=== PATIENT | male | born 1955 | race Caucasian/White ===

== ENCOUNTER 2017-07-14 16:31 | Inpatient (IN) | payer BC ==
[2017-07-14] MEDS ORDERED: NITROGLYCERIN OINT 1 INCH/GM PACKET TOPICAL STA (16:41)
[2017-07-14] MEDS ORDERED: ASPIRIN 81 MG PO STA (16:41)
[2017-07-14 16:43] LABS: Glucose,Whole Blood 103 mg/dL (75-99)
[2017-07-14 16:50] LABS: Basophils # (A) 0.1 k/uL (0-0.2); Basophils % (A) 1 %; CH 31.1; CHCM 35.9; Eosinophils # (A) 0.2 k/uL (0-0.7); Eosinophils % (A) 2 %; HCT 41.8 % (39.0-53.0); HDW 2.82; HGB 14.5 gm/dL (13.0-17.5); Luc % (Auto) 3; Lymphocytes # (A) 2.9 k/uL (1.0-4.8); Lymphocytes % (A) 38 %; MCH 30.2 pg (25.0-35.0); MCHC 34.6 g/dL (31.0-37.0); MCV 87.2 fL (80.0-100.0); Mean Platelet Volume 7.5; Monocytes # (A) 0.5 k/uL (0-1.0); Monocytes % (A) 7 %; Neutrophils # (A) 3.8 k/uL (1.3-7.7); Neutrophils % (A) 50 %; RDW 15.3 % (11.5-15.5); WBC 7.6 k/uL (3.8-10.6); WBC (Perox) 7.81
[2017-07-14] MEDS ORDERED: METOPROLOL TARTRATE 5 MG/5 ML VIAL IVP STA (16:53)
[2017-07-14 16:58] LABS: Partial Thromboplastin Time 26.2 sec (22.0-30.0); Prothrombin Time 10.2 sec (9.0-12.0)
[2017-07-14 16:59] LABS: ALT 47 U/L (21-72); AST 28 U/L (17-59); Alkaline Phosphatase 74 U/L (38-126); Anion Gap 8 mmol/L; Blood Urea Nitrogen 16 mg/dL (9-20); Calcium 9.3 mg/dL (8.4-10.2); Carbon Dioxide 24 mmol/L (22-30); Chloride 107 mmol/L (98-107); Glucose 96 mg/dL (74-99); Magnesium 1.6 mg/dL (1.6-2.3); Non-African American GFR(MDRD) >60 (>60 ml/min/1.73 sqM); Sodium 139 mmol/L (137-145); Total Bilirubin 0.6 mg/dL (0.2-1.3); Total Protein 6.9 g/dL (6.3-8.2)
[2017-07-14 17:07] LABS: Creatine Kinase 83 U/L (55-170)
--- NOTE | 2017-07-14 17:16 | XR ---
EXAMINATION TYPE: XR chest 2V DATE OF EXAM: 07/14/2017 COMPARISON: 07/05/2012 HISTORY: Shortness of breath TECHNIQUE: Frontal and lateral views of the chest are obtained. FINDINGS: Scattered senescent parenchymal changes noted. Hyperinflation compatible with COPD. No evidence for infiltrate. No evidence for atelectasis. Heart size is stable. Mediastinal structures are stable and grossly unremarkable. No evidence for hilar prominence. Degenerative changes dorsal spine. IMPRESSION: 1. No evidence for acute pulmonary disease.
[2017-07-14 17:21] LABS: Troponin I <0.012 ng/mL (0.000-0.034)
[2017-07-14] MEDS: METOPROLOL TARTRATE 5 MG/5 ML VIAL IVP SCH (17:35)
--- NOTE | 2017-07-14 17:54 | ED ---
Chest Pain HPI - General Chief Complaint: Chest Pain Stated Complaint: chest pain Time Seen by Provider: 07/14/17 16:37 Source: patient Mode of arrival: EMS Limitations: no limitations - History of Present Illness Initial Comments: This 62-year-old white male presents with a complaint of some midsternal and left-sided chest pain is described as a pressure type sensation associated with some shortness of breath without radiation. He states that this occurred while at work this afternoon around 2 PM. He initially tried a sublingual nitroglycerin and this may have helped somewhat but then it reoccurred. He took a second sublingual nitroglycerin prior to ambulance arrival. He apparently did also have some diaphoresis. He does have a significant cardiac history with previous stents. He denies any other complaints or modifying factors. The pain has subsided at this time. - Related Data Home Medications Medication Instructions Recorded Confirmed Albuterol Sulfate [Proair Hfa] 2 puff INHALATION RT-Q6H PRN 07/14/17 07/14/17 Aspirin 325 mg PO DAILY 07/14/17 07/14/17 Atenolol [Tenormin] 50 mg PO BID 07/14/17 07/14/17 Benazepril/Hydrochlorothiazide 2 tab PO DAILY 07/14/17 07/14/17 [Benazepril-Hctz 20-12.5 mg Tab] Mildred 500 mg PO DAILY 07/14/17 07/14/17 Ibuprofen [Motrin] 800 mg PO TID 07/14/17 07/14/17 Multivitamins, Thera [Multivitamin 1 tab PO DAILY 07/14/17 07/14/17 (formulary)] Niacin 500 mg PO HS 07/14/17 07/14/17 [place]-3 Fatty Acids/Fish Oil [Fish 1 cap PO DAILY 07/14/17 07/14/17 Oil 1,000 mg Softgel] Omeprazole 20 mg PO DAILY 07/14/17 07/14/17 Simvastatin [Zocor] 40 mg PO HS 07/14/17 07/14/17 metFORMIN HCL [Glucophage] 500 mg PO BID 07/14/17 07/14/17 Allergies Allergy/AdvReac Type Severity Reaction Status Date / Time No Known Allergies Allergy Verified 07/14/17 17:14 Review of Systems ROS Statement: Those systems with pertinent positive or pertinent negative responses have been documented in the HPI. ROS Other: All systems not noted in ROS Statement are negative. Past Medical History Past Medical History: Coronary Artery Disease (CAD), Diabetes Mellitus, Hyperlipidemia, Hypertension, Myocardial Infarction ([place]) History of Any Multi-Drug Resistant Organisms: None Reported Past Surgical History: Heart Catheterization With Stent Past Psychological History: No Psychological Hx Reported Smoking Status: Former smoker Past Alcohol Use History: Daily Past Drug Use History: None Reported General Exam - General Exam Comments Initial Comments: GENERAL: The patient is well nourished and well hydrated. VITAL SIGNS: Heart rate, blood pressure, respiratory rate reviewed as recorded in nurse's notes. EYES: Pupils are round and reactive. Extraocular movements are intact. No conjunctival / lid redness or swelling. ENT: No external evidence of injury, swelling, or ecchymosis. Airway is patent. Throat is clear. NECK: Nontender. No swelling or evidence of injury. No subcutaneous emphysema. Trachea is midline. No thyroid mass. HEART: Regular rate and rhythm. Good peripheral pulses. LUNGS/CHEST: Breath sounds clear and equal bilaterally. No rales, rhonchi, or wheezes. No ecchymosis, subcutaneous emphysema, or tenderness. ABDOMEN: Abdomen soft without tenderness. No palpable masses or organomegaly. No peritoneal signs. No abdominal wall swelling or ecchymosis. EXTREMITIES: No extremity tenderness. Normal muscle tone and function. No thoracolumbar tenderness. NEUROLOGIC: Sensation is grossly intact. Cranial nerve exam reveals face is symmetrical, tongue is midline, speech is clear. SKIN: No abrasions or ecchymosis is noted. No induration or masses noted. PSYCHIATRIC: Alert and oriented. Appropriate behavior and judgment. Limitations: no limitations Course Vital Signs 07/14/17 16:33 Temperature 97.6 F Pulse Rate 66 Respiratory 20 Rate Blood Pressure 173/80 O2 Sat by Pulse 98 Oximetry Chest Pain MDM - MDM The patient was seen and examined. All diagnostics were reviewed. An IV is established and he is placed on residential monitor. The EKG is done and this does show a normal sinus rhythm. There is some nonspecific ST-T wave changes in the lateral leads. The NC interval is 154, QRS duration is 112, and the QTc interval is 436. Patient received aspirin as well as some Nitropaste. The laboratory Came back unremarkable. The chest x-ray does not show any acute process. The possibility of acute coronary syndrome certainly is possible and it is felt as though patient would require admission to the hospital for further treatment and to rule out the possibility of acute coronary syndrome. The patient is agreeable. 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 Case will be discussed with internal medicine in the near future and he'll be admitted with cardiology to consult. Disposition Clinical Impression: Chest pain, Unstable angina, Hypertension Disposition: ADMITTED IP TO THIS HOSP Condition: Fair Time of Disposition: 17:58 Decision Date: 07/14/17 Decision Time: 17:58
[2017-07-14] MEDS ORDERED: NITROGLYCERIN SL TABS 0.4 MG TAB SUBLINGUAL PRN (17:59)
[2017-07-14] MEDS ORDERED: HEPARIN SODIUM,PORCINE 5,000 UNIT/ML 1 ML VIAL IV PRN (17:59)
[2017-07-14] MEDS ORDERED: HEPARIN SODIUM,PORCINE 5,000 UNIT/ML 1 ML VIAL IV ONE (17:59)
[2017-07-14] MEDS ORDERED: HEPARIN SODIUM,PORCINE/D5W PMX 25,000 UNIT in DEXTROSE/WATER 1 500ML.BAG IV SCH (18:00)
[2017-07-14] MEDS ORDERED: ALBUTEROL NEBULIZED 2.5 MG/3 ML INHALATION PRN (18:02)
[2017-07-14] MEDS ORDERED: ATORVASTATIN 20 MG TAB PO SCH (21:00)
[2017-07-14] MEDS ORDERED: IBUPROFEN 800 MG TAB PO SCH (22:00)
[2017-07-14] MEDS: NIACIN TR 500 MG CAPSULE.ER PO SCH (22:24)
[2017-07-14] MEDS: metFORMIN 500 MG TAB PO SCH (22:24)
[2017-07-14] MEDS: ATENOLOL 50 MG TAB PO SCH (22:24)
[2017-07-14 23:34] LABS: Creatine Kinase 70 U/L (55-170)
[2017-07-14 23:49] LABS: Creatine Kinase MB 0.7 ng/mL (0.0-2.4); Troponin I <0.012 ng/mL (0.000-0.034)
[2017-07-15 04:53] LABS: Mean Platelet Volume 7.2
[2017-07-15 05:08] LABS: Cholesterol 155 mg/dL (<200); HDL Cholesterol 32 mg/dL (40-60)
[2017-07-15 05:11] LABS: Creatine Kinase 57 U/L (55-170)
[2017-07-15 05:24] LABS: Creatine Kinase MB 0.6 ng/mL (0.0-2.4); Troponin I <0.012 ng/mL (0.000-0.034)
--- NOTE | 2017-07-15 05:24 | HP ---
HISTORY AND PHYSICAL DATE OF ADMISSION: 07/14/2017 PRESENTING COMPLAINT: Chest pain. HISTORY OF PRESENTING COMPLAINT: This is a pleasant 62-year-old patient of Dr. Guzmán. Chronic stable medical conditions include diabetes, hyperlipidemia, hypertension. The patient had 2 stents placed one 12 years ago and one 14 years ago. Patient follows with Dr. Ozzy Andersen from cardiology. The patient for a few days has been having chest pain coming on with activity and going away on bed rest. Today at work, the patient had left severe pressure especially in the epigastric area going up to chest. Became short of breath, nausea, started sweating. [place] extremely tired. Admitted for unstable angina. Started on IV heparin. The patient's and daughter at the bedside. REVIEW OF SYSTEMS: CONSTITUTIONAL: Tired. HEENT: None. RESPIRATORY: As above. CARDIOVASCULAR: As above. GASTROINTESTINAL: Heartburn. GENITOURINARY: None. MUSCULOSKELETAL: None. DERMATOLOGICAL: HEMATOLOGIC: None. LYMPHATIC: None. PSYCHIATRY: None. NEUROLOGIC: None. PAST MEDICAL HISTORY: Coronary artery disease with 2 stents 12 and 14 years ago and diabetes mellitus type 2, hyperlipidemia, hypertension. PAST SURGICAL HISTORY: Cardiac cath with stent. SOCIAL HISTORY: The patient stopped smoking in 1993. Works at [employer] . FAMILY HISTORY: Reviewed, noncontributory to presentation. HOME MEDICATIONS: 1. Zocor 40 mg q.h.s. 2. Niacin 500 mg q.h.s. 3. Fish oil 1000 mg p.o. daily. 4. Mildred 500 mg p.o. daily. 5. Multivitamin 1 tablet p.o. daily. 6. Aspirin 325 p.o. daily. 7. ProAir 2 puffs q.6 p.r.n. 8. Glucophage 500 mg p.o. b.i.d. 9. Omeprazole 20 mg p.o. daily. 10.Motrin 800 mg p.o. t.i.d. 11.Benazepril hydrochlorothiazide 20/12.5 two tablets p.o. daily. 12.Tenormin 50 mg p.o. b.i.d. ALLERGIES: None. PHYSICAL EXAMINATION: On examination, vital signs on presentation, temperature 97.6, pulse 66, respirations 20, blood pressure 173/80, pulse ox 98% on 2 L. Repeat blood pressure 132/76. GENERAL APPEARANCE: Well built, BMI 41.5, sitting up, tired appearing. EYES: Pupils equal. Conjunctivae normal. HENT: Oral cavity normal. NECK: JVD not raised. Mass not palpable. RESPIRATORY: Effort normal, slightly distant breath sounds. CARDIOVASCULAR: First and second sounds normal. No edema. ABDOMEN: Soft, nontender. Liver and spleen not palpable. LYMPHATIC: No lymph node palpable in the neck or axillae. PSYCHIATRY: Alert and oriented x3. Mood affect normal. NEUROLOGICAL: Pupils equal. Cranial nerves grossly intact. Power and sensation grossly intact. INVESTIGATIONS: White count 7.6, hemoglobin 14.5. Potassium 4.0. BUN and creatinine normal. Troponin negative. EKG specific T-wave changes in the inferior leads. ASSESSMENT: 1. Unstable angina/acute coronary syndrome with anterior chest wall pain in a patient with known coronary artery disease with stent 12 years ago with symptoms that have been progressive for the last few days, rather cardiac sounding presentation. 2. Diabetes mellitus type 2, on oral hypoglycemic. 3. Hyperlipidemia. 4. Essential hypertension. 5. Morbid obesity, body mass index 41.5. 6. IV heparin monitoring. PLAN: Home medications are resumed. Patient on IV heparin, aspirin. Patient will be made n.p.o. after midnight except for p.o. medications with possibility of cardiac catheterization. Will let Cardiology determined that with the patient. The patient was due to see Dr. Ozzy Andersen in the office today. Care was discussed with the patient and family at bedside. MMODL / IJN: [id number] /
[2017-07-15 07:38] LABS: Glucose,Whole Blood 130 mg/dL (75-99)
[2017-07-15] MEDS ORDERED: ASPIRIN 325 MG TAB PO SCH (09:00)
[2017-07-15] MEDS ORDERED: NON-FORMULARY DRUG (Omega-3 Fatty Acids/Fish Oil [Fish Oil 1,000 Mg Softgel] 1 CAP) PO SCH (09:00)
[2017-07-15] MEDS ORDERED: GINGER 500 MG PO SCH (09:00)
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
[2017-07-15 11:58] LABS: Glucose,Whole Blood 126 mg/dL (75-99)
[2017-07-15] MEDS: LISINOPRIL 20 MG TAB PO SCH (12:23)
[2017-07-15] MEDS: HYDROCHLOROTHIAZIDE 25 MG TAB PO SCH (12:26)
[2017-07-15] MEDS: ATENOLOL 50 MG TAB PO SCH ×2 (12:26→22:50)
[2017-07-15] MEDS: metFORMIN 500 MG TAB PO SCH ×2 (12:26→17:54)
[2017-07-15] MEDS: PANTOPRAZOLE 40 MG TABLET PO SCH (12:26)
[2017-07-15] MEDS: ASPIRIN 81 MG PO SCH (12:26)
[2017-07-15] MEDS: MULTIVITAMINS, THERA 1 EACH TAB PO SCH (12:27)
[2017-07-15] MEDS ORDERED: ASPIRIN 325 MG TAB PO STA (12:49)
[2017-07-15] MEDS ORDERED: ALPRAZolam 0.5 MG TAB PO PRN (12:49)
[2017-07-15] MEDS ORDERED: ALPRAZolam 0.25 MG TAB PO PRN (12:49)
[2017-07-15] MEDS ORDERED: ATORVASTATIN 80 MG TAB PO STA (12:49)
[2017-07-15] MEDS ORDERED: SODIUM CHLORIDE 0.9% 1,000 ML in EMPTY BAG 1 BAG IV ONE (12:49)
--- NOTE | 2017-07-15 12:52 | PN ---
PROGRESS NOTE A 62-year-old gentleman who used to see me in the office and I performed previous percutaneous coronary intervention, but the details are not available. He was scheduled to see me today as an outpatient because of symptoms suggestive of angina with mild activity. However he came to the hospital with symptoms of angina. EKG revealed mild IVCD, poor R-wave progression, and 2 sets of troponins are normal. I am advising coronary angiography. Patient was seen and evaluated by Dr. Mcintyre. I am advising coronary angiography and possible intervention. The rationale for this procedure, risks, benefits, options were explained to the patient and family. They understand all details and wished to proceed with the procedure. Physical exam is unremarkable. Patient appears to be pain free at this time. I will review his old record and perform coronary angiography and PCI if indicated tomorrow morning. The patient and family understand all details and wished to proceed with cath and possible PCI. MMASHOK / IJN: [id number] /
--- NOTE | 2017-07-15 13:04 | ECHOF ---
Referral Reason:cp MEASUREMENTS -------- HEIGHT: 170.2 cm WEIGHT: 120.2 kg BP: 112/53 RVIDd: 3.2 cm (< 3.3) IVSd: 1.1 cm (0.6 - 1.1) LVIDd: 4.9 cm (3.9 - 5.3) LVPWd: 1.2 cm (0.6 - 1.1) IVSs: 1.7 cm LVIDs: 3.7 cm LVPWs: 1.8 cm LA Diam: 3.8 cm (2.7 - 3.8) LAESV Index (A-L): 31.04 ml/m Ao Diam: 3.5 cm (2.0 - 3.7) AV Cusp: 2.3 cm (1.5 - 2.6) MV E Fly: 0.92 m/s MV DecT: 189 ms MV A Fly: 0.74 m/s MV E/A Ratio: 1.24 FINDINGS -------- Sinus rhythm. This was a technically adequate study. The left ventricular size is normal. There is borderline concentric left ventricular hypertrophy. Overall left ventricular systolic function is normal with, an EF between 60 - 65 %. The right ventricle is normal in size. LA is midly dilated 29-33ml/m2. The right atrium is normal in size. Aortic valve is trileaflet and is mildly thickened. The mitral valve is normal. The tricuspid valve appears structurally normal. Pulmonic valve appears structurally normal. The aortic root size is normal. Normal inferior vena cava with normal inspiratory collapse consistent with estimated right atrial pressure of 5 mmHg. There is no pericardial effusion. CONCLUSIONS -------- 1. Sinus rhythm. 2. The mitral valve is normal. 3. The tricuspid valve appears structurally normal. 4. Pulmonic valve appears structurally normal. 5. The aortic root size is normal. 6. Normal inferior vena cava with normal inspiratory collapse consistent with estimated right atrial pressure of 5 mmHg. 7. There is no pericardial effusion. 8. This was a technically adequate study. 9. The left ventricular size is normal. 10. There is borderline concentric left ventricular hypertrophy. 11. Overall left ventricular systolic function is normal with, an EF between 60 - 65 %. 12. The right ventricle is normal in size. 13. LA is midly dilated 29-33ml/m2. 14. The right atrium is normal in size. 15. Aortic valve is trileaflet and is mildly thickened. PUBLIC ADDRESS TECHNICIAN: Karmen Tariq RDCS
--- NOTE | 2017-07-15 14:38 | PN ---
PROGRESS NOTE DATE OF SERVICE: 07/15/2017 PRESENTING COMPLAINT: Chest pain. INTERVAL HISTORY: This patient with known coronary artery disease, presented with other cardiac sorting presentation. Patient has been on IV heparin. No further chest pain. Possibility of cardiac catheterization per Cardiology next. REVIEW OF SYSTEMS: Done for constitutional, cardiovascular, GI, pulmonary, renal findings as above next. CURRENT MEDICATIONS: Reviewed that include IV heparin. EXAMINATION: On examination, temperature 97.9, pulse 62, respiratory 18, blood pressure 130/65, pulse ox 95% room air. GENERAL APPEARANCE: Lying in bed, comfortable. EYES: Pupil equal, conjunctivae normal. NECK: JVD not raised. Mass not palpable. Respiratory effort normal. LUNGS: Slightly decreased breath sounds. CARDIOVASCULAR: First and second sounds, no edema. ABDOMEN: Soft, nontender. Liver and spleen not palpable. PSYCHIATRY: Alert and oriented x3, mood and affect normal. INVESTIGATIONS: Troponin x3 negative. ASSESSMENT: 1. Unstable angina/acute coronary syndrome rather cardiac sounding in a patient with known coronary artery disease, stent 12 years ago with symptoms rather progressive in the last few days. 2. Diabetes mellitus type 2, on oral hypoglycemic. 3. Hyperlipidemia. 4. Essential hypertension. 5. Morbid obesity. Body mass index of 41.5. 6. IV heparin monitoring. PLAN: Care was discussed with the patient. Continue current medication and treatment plan. Patient should be going down for a cardiac cath later today. MMODL / IJN: [id number] /
[2017-07-15 17:15] LABS: Glucose,Whole Blood 120 mg/dL (75-99)
[2017-07-15 20:56] LABS: Glucose,Whole Blood 133 mg/dL (75-99)
[2017-07-15] MEDS: NIACIN TR 500 MG CAPSULE.ER PO SCH (22:48)
[2017-07-16 06:15] LABS: Mean Platelet Volume 7.5
[2017-07-16 06:58] LABS: Glucose,Whole Blood 128 mg/dL (75-99)
[2017-07-16] MEDS: ATENOLOL 50 MG TAB PO SCH (06:59)
[2017-07-16] MEDS: LISINOPRIL 20 MG TAB PO SCH (06:59)
[2017-07-16] MEDS ORDERED: diphenhydrAMINE 50 MG/ML 1 ML VIAL ONE (07:19)
[2017-07-16] MEDS ORDERED: MIDAZOLAM 2 MG/2 ML VIAL ONE (07:20)
[2017-07-16] MEDS ORDERED: IV FLUID CONTINUATION 950 ML IV ONE (07:30)
[2017-07-16] MEDS ORDERED: MIDAZOLAM 2 MG/2 ML VIAL IVP ONE (07:36)
[2017-07-16] MEDS ORDERED: diphenhydrAMINE 50 MG/ML 1 ML VIAL IVP ONE (07:36)
[2017-07-16] MEDS ORDERED: VERAPAMIL 2.5 MG/ML 2 ML AMP ONE (07:37)
[2017-07-16] MEDS ORDERED: LIDOCAINE 2% (PF) 20 MG/ML 2 ML VIAL SQ ONE (07:38)
[2017-07-16] MEDS ORDERED: VERAPAMIL SYRINGE (5 MG/10 ML) INTRAARTER ONE (07:40)
[2017-07-16] MEDS ORDERED: HEPARIN SODIUM 1,000 UN/ML (10ML VL) IV ONE (07:41)
[2017-07-16] MEDS: VERAPAMIL SYRINGE (5 MG/10 ML) INTRAARTER ONE ×2 (07:42→08:18)
[2017-07-16] MEDS ORDERED: NITROGLYCERIN SL TABS 0.4 MG TAB SUBLINGUAL ONE ×2 (07:44→07:45)
[2017-07-16] MEDS ORDERED: IOHEXOL 350 MG/ML 100 ML BOTTLE INJ ONE (08:20)
[2017-07-16 08:25] VITALS: RESP 18
[2017-07-16] MEDS ORDERED: RX INFO: IV CONTRAST WAS GIVEN 1 EACH MISC MISCELLANE PRN (08:35)
[2017-07-16] MEDS ORDERED: SODIUM CHLORIDE 0.9% 1,000 ML IV SCH (08:45)
[2017-07-16] MEDS ORDERED: CLOPIDOGREL 75 MG TAB PO SCH (09:00)
[2017-07-16] MEDS ORDERED: ISOSORBIDE MONONITRATE ER 30 MG TAB.ER.24H PO SCH (09:00)
[2017-07-16] MEDS: metFORMIN 500 MG TAB PO SCH ×2 (09:41→17:19)
[2017-07-16] MEDS: PANTOPRAZOLE 40 MG TABLET PO SCH (09:44)
[2017-07-16] MEDS: MULTIVITAMINS, THERA 1 EACH TAB PO SCH (09:44)
[2017-07-16] MEDS: ASPIRIN 81 MG PO SCH (09:44)
[2017-07-16] MEDS: HYDROCHLOROTHIAZIDE 25 MG TAB PO SCH (10:54)
[2017-07-16 11:56] LABS: Glucose,Whole Blood 117 mg/dL (75-99)
--- NOTE | 2017-07-16 14:24 | CC ---
CARDIAC CATHETERIZATION REPORT DATE OF SERVICE: 07/16/2017 PROCEDURE: Left heart catheterization and coronary angiography. Performed by Dr. Ozzy Andersen. CLINICAL INFORMATION: Mr. Robin Rees is a 62-year-old gentleman with a known history of CAD and previous stenting of proximal LAD performed by me initially in September 2003 and subsequently another lesion proximal to it in November 2005. Since then, he has not followed here consistently, came into the hospital with symptoms strongly suggestive of angina with no elevation of troponin. He was advised cardiac cath and after explanation of risks, benefits, and options. PROCEDURE NOTE: Under local anesthesia and strict aseptic precautions, a 6-Occitan introducer was placed in the right radial artery. I used ultimate 1 catheter for selective coronary angiography of the left coronary artery and after trying a HENRI and a right Jared catheter, eventually with the AR 2 catheter, I had a good seating and selective injection of the RCA. LV pressures were obtained but LV-gram was not performed. Patient tolerated the procedure well. Moderate conscious sedation was provided for a total duration of 45 minutes with a combination of Versed and Benadryl. CARDIAC CATHETERIZATION FINDINGS: The left ventricular end-diastolic pressure was 8 mmHg without gradient across the aortic valve.. CORONARY ANGIOGRAPHY FINDINGS: RIGHT CORONARY ARTERY: This is technically a dominant vessel which gives off a conus branch, very proximally and each time I kept cannulating the conus branch. Right coronary artery is technically dominant, free of significant disease, but in the midportion there is a long area of 35% narrowing with minor irregularity supply a sizable amount of myocardium and bifurcates into PDA and PLV. LEFT MAIN CORONARY ARTERY: This is a short patent disease-free vessel that immediately bifurcates into LAD and circumflex. Left main itself is free of significant disease. LEFT ANTERIOR DESCENDING CORONARY ARTERY: This vessel at the site of previous stenting is widely patent. The proximal stent has about a 40% narrowing with a very good flow. In multiple views, there does not appear to be a significant lesion; however, there is this area of haziness noted in the coronal projection. Beyond the stented segment the LAD is free of significant disease. It runs all the way to the apex, supplying a sizable amount of myocardium. Gives off septal and diagonal branches. There is one good-sized diagonal branch that comes off from the stented segment of LAD. The ostium of the diagonal is free of significant disease, but in the body of the diagonal, there is a new lesion of nearly 70%. It appears to be quite significant. This was not noted on a previous cardiac cath from 2005. The diagonal beyond the 70% stenosis is free of significant disease and supplies a fair amount of myocardium. LEFT POSTERIOR CIRCUMFLEX CORONARY ARTERY: Technically a nondominant vessel, has minor irregularities, gives off a first obtuse marginal and continues as a second obtuse marginal, which is of fair caliber and distribution. No significant disease, only minor irregularities are noted. Left ventriculogram was not performed. FINAL IMPRESSION: This patient has a stenosis involving a major diagonal branch, which seems to be jailed and seems to come off from the jailed segment of the left anterior descending artery. This lesion is significant. Additionally, the proximal LAD also has some haziness and the lesion is no more 45%, but this needs to be further verified. The circumflex is free of significant disease. It is non-dominant. The dominant RCA has 35% long area of disease in the midportion. Left ventricular pressures are normal. RECOMMENDATIONS: I am advising that we will pursue medical therapy with the understanding that I will bring him back next week and from the femoral approach, I will perform an FFR or an IVUS to check the proximal LAD and also consider intervention of the diagonal branch and I will have to go through the stented segment of LAD and this will be a complex procedure. This was explained in detail to the patient and and I will see him again on Thursday and discuss this further. Patient will be placed on Plavix 75 mg daily, Imdur 30 mg daily, and atorvastatin will be increased to 40 mg daily. He will be discharged later on today and will follow up with Dr. Adler, his primary care physician and I will see him on Thursday. MMODL / IJN: [id number] /
--- NOTE | 2017-07-16 14:27 | LTR ---
Date: DATE OF SERVICE: 07/16/2017 RE: Robin Rees Dear Dr. Guzmán; Thank you for the opportunity to participate in the care of Mr. Robin Rees. Please find enclosed my detailed cardiac cath report for your records. I am recommending that we should consider an FFR wire or IVUS of the proximal LAD and then consider intervention of the diagonal. I have given him substantial amount of contrast and he will probably have a better seating of the guide catheter from the femoral approach. I will discharge him later today and re-evaluate him on Thursday and bring him back for the procedure electively. Thank you for your referral and please call for questions. With kindest regards. Sincerely yours, MD MICHAEL Limon / JOEYN: [id number] /
[2017-07-16 15:50] VITALS: BP 131/69; PULSE 63; TEMP 97.6
[2017-07-16 17:02] LABS: Glucose,Whole Blood 118 mg/dL (75-99)
--- NOTE | 2017-07-16 19:45 | DS ---
DISCHARGE SUMMARY DATE OF ADMISSION: 07/14/2017. DATE OF DISCHARGE: 07/16/2017 FINAL DIAGNOSIS: 1. Unstable angina, acute coronary syndrome in a patient with known coronary artery disease. 2. Diabetes mellitus type 2 on oral hypoglycemic. 3. Hyperlipidemia. 4. Essential hypertension. 5. Morbid obesity. Body mass index of 41.5. 6. IV heparin monitoring. 7. CONSULTATION: Dr. Toni Mcintyre from Cardiology and Dr. Ozzy Andersen from interventional cardiology. HOSPITAL COURSE: This patient with known coronary artery disease with stent 12 years ago presents with another cardiac-sounding presentation. Cardiac catheterization was done by Dr. Ozzy Andersen. The patient was found to have disease in the diagonal branch, but he needs to bring the patient back to determine, as this will be more for complex intervention. Imdur is being added. Plavix is being added. Troponins were negative. The patient's triglycerides of 500. EXAMINATION: LUNGS: Clear. CARDIOVASCULAR: 1st and 2nd sounds normal. Care was discussed with the patient. HOME GO MEDICATIONS: 1. ProAir 2 puffs every 6 hours p.r.n. 2. Tenormin 50 mg b.i.d. 3. Benazepril/hydrochlorothiazide 20/12.5, 2 tablets daily. 4. Mildred. 5. Multivitamin 1 tab p.o. daily. 6. Niacin 500 mg p.o. q.h.s. 7. Fish oil 1000 mg p.o. daily. 8. Prilosec 20 mg p.o. daily. 9. Glucophage 500 mg p.o. b.i.d. 10.Aspirin 81 mg p.o. daily. 11.Lipitor 40 mg q.h.s. 12.Plavix 75 mg p.o. daily. 13.Imdur ER 30 mg p.o. daily. 14.Nitrostat 0.4 sublingual q.5 p.r.n. FOLLOWUP: With Dr. Ozzy Andersen on 07/20/2017 at 9:45 a.m., Dr. Guzmán in 2 days. BMP in 3 days. ACTIVITY: Restrictions as per Cardiology. MMODL / IJN: [id number] /
[2017-07-16] MEDS ORDERED: ATORVASTATIN 40 MG TAB PO SCH (21:00)
== END 2017-07-16 18:24 | disposition home or self-care (01) | DRG 287 ==
LOC: EC 16:31 → 3OBS 17:59 → OBSVTOIN 07-15 14:26 → 3OBS 07-15 20:51
PROVIDERS: ADMIT Hospitalist; ATTEND Hospitalist
PROC: B2111ZZ Fluoroscopy of Multiple Coronary Arteries using Low Osmolar Contrast (ICD-10-PCS; 2017-07-16)
PROC: 4A023N7 Measurement of Cardiac Sampling and Pressure, Left Heart, Percutaneous Approach (ICD-10-PCS; principal; 2017-07-16 07:25)
DX: I25.110 Atherosclerotic heart disease of native coronary artery with unstable angina pectoris (principal); Z68.41 Body mass index [BMI] 40.0-44.9, adult; I10 Essential (primary) hypertension; E66.01 Morbid (severe) obesity due to excess calories; K21.9 Gastro-esophageal reflux disease without esophagitis; E78.1 Pure hyperglyceridemia; J44.9 Chronic obstructive pulmonary disease, unspecified; I25.2 Old myocardial infarction; G47.30 Sleep apnea, unspecified; E11.9 Type 2 diabetes mellitus without complications; M19.91 Primary osteoarthritis, unspecified site; E78.5 Hyperlipidemia, unspecified; Z79.84 Long term (current) use of oral hypoglycemic drugs; Z79.1 Long term (current) use of non-steroidal anti-inflammatories (NSAID); Z79.82 Long term (current) use of aspirin; Z79.899 Other long term (current) drug therapy; Z95.5 Presence of coronary angioplasty implant and graft; Z87.891 Personal history of nicotine dependence
CPT/HCPCS: 36415; 71020; 80053; 80061; 82550; 82553; 83735; 84484; 85025; 85049; 85610; 85730; 93005; 93306; 93458; 96365; 96366; 96374; 96375; 96376; 99285

== ENCOUNTER → 2017-07-18 | Outpatient (CLI) | payer BC ==
[2017-07-18 13:15] LABS: Anion Gap 10 mmol/L; Blood Urea Nitrogen 15 mg/dL (9-20); Calcium 9.9 mg/dL (8.4-10.2); Carbon Dioxide 29 mmol/L (22-30); Chloride 101 mmol/L (98-107); Glucose 112 mg/dL (74-99); Non-African American GFR(MDRD) >60 (>60 ml/min/1.73 sqM); Potassium 4.3 mmol/L (3.5-5.1); Sodium 140 mmol/L (137-145)
== END | disposition home or self-care (01) ==
LOC: LABWHC1 12:22
PROVIDERS: ATTEND Hospitalist
DX: I25.10 Atherosclerotic heart disease of native coronary artery without angina pectoris (principal)
CPT/HCPCS: 36415; 80048

== ENCOUNTER 2017-07-22 07:53 | Day surgery (SDC) | payer BC ==
[2017-07-20 15:56] VITALS: BMI 39.6
[~2017-07-22 07:53] MED LIST: ALPRAZolam 0.25 MG TAB PO PRN; ALPRAZolam 0.5 MG TAB PO PRN; ASPIRIN 325 MG TAB PO STA; ATORVASTATIN 80 MG TAB PO STA; NITROGLYCERIN SL TABS 0.4 MG TAB SUBLINGUAL PRN; SODIUM CHLORIDE 0.9% 1,000 ML in EMPTY BAG 1 BAG IV ONE
[2017-07-22 08:50] LABS: Glucose,Whole Blood 134 mg/dL (75-99)
[2017-07-22] MEDS ORDERED: diphenhydrAMINE 50 MG/ML 1 ML VIAL ONE (09:09)
[2017-07-22] MEDS ORDERED: MIDAZOLAM 2 MG/2 ML VIAL ONE (09:09)
[2017-07-22] MEDS ORDERED: LIDOCAINE 2% INJ 20 MG/ML (20 ML MDV) ONE (09:09)
[2017-07-22] MEDS ORDERED: MIDAZOLAM 2 MG/2 ML VIAL IV ONE (09:38)
[2017-07-22] MEDS ORDERED: diphenhydrAMINE 50 MG/ML 1 ML VIAL IVP ONE (09:38)
[2017-07-22] MEDS ORDERED: LIDOCAINE 2% INJ 20 MG/ML SQ ONE (09:45)
[2017-07-22] MEDS: NITROGLYCERIN 1000MCG/10ML SYRINGE INTRAARTER ONE ×5 (09:56→10:23)
[2017-07-22] MEDS ORDERED: NOREPINEPHRIN 4 MG-0.9% NS PMX 4 MG/250 ML ML IV ONE (09:59)
[2017-07-22] MEDS ORDERED: BIVALIRUDIN BOLUS 250 MG/50 ML IV ONE (10:00)
[2017-07-22] MEDS ORDERED: BIVALIRUDIN 250 MG in SODIUM CHLORIDE 0.9% 50 ML IV ONE (10:00)
[2017-07-22] MEDS ORDERED: NITROGLYCERIN SL TABS 0.4 MG TAB SUBLINGUAL ONE ×2 (10:01→10:02)
[2017-07-22] MEDS ORDERED: HYDROmorphone 2 MG/ML 1 ML SYRINGE ONE (10:05)
[2017-07-22] MEDS ORDERED: HYDROmorphone 2 MG/ML 1 ML SYRINGE IV ONE (10:05)
[2017-07-22] MEDS ORDERED: IOHEXOL 350 MG/ML (PER ML) 100ML BTL INJ ONE (10:27)
[2017-07-22] MEDS ORDERED: CLOPIDOGREL 75 MG TAB ONE ×2 (10:30)
[2017-07-22] MEDS ORDERED: CLOPIDOGREL 75 MG TAB PO ONE (10:32)
[2017-07-22] MEDS ORDERED: RX INFO: IV CONTRAST WAS GIVEN 1 EACH MISC MISCELLANE PRN (10:38)
[2017-07-22] MEDS ORDERED: ATROPINE SULFATE 0.1 MG/ML 10ML SYRINGE IV PRN (10:38)
[2017-07-22] MEDS ORDERED: ZOLPIDEM 5 MG TAB PO PRN (10:38)
[2017-07-22] MEDS ORDERED: NITROGLYCERIN SL TABS 0.4 MG TAB SUBLINGUAL PRN ×2 (10:38→10:40)
[2017-07-22] MEDS ORDERED: MAG HYDROX/AL HYDROX/SIMETH 30 ML CUP PO PRN (10:38)
[2017-07-22] MEDS ORDERED: ALBUTEROL NEBULIZED 2.5 MG/3 ML INHALATION PRN (10:40)
--- NOTE | 2017-07-22 11:24 | PTCA ---
PERCUTANEOUSTRANS CORORONARY ANGIOGRAPHY DATE OF SERVICE: 07/22/2017. PROCEDURE: 1. PTCA and stenting of proximal LAD. 2. PTCA and stenting of major diagonal branch of LAD. Performed by Dr. Ozzy Andersen. CLINICAL INFORMATION: Mr. Robin Rees is a 62-year-old gentleman with history of type 2 diabetes, hypertension, hyperlipidemia, underwent stenting of LAD performed in September 2003 and again in 2005. I performed a cardiac cath last week and noted that he had a moderate lesion in the proximal LAD, but he also had a significant lesion in the diagonal branch. The diagonal still seemed to be coming just at or after the stent. I advised that we will perform possibly a FFR of the proximal LAD and then perform intervention of the diagonal and brought in for the procedure. He was placed on Plavix for at least 6 days. PROCEDURE NOTE: Under local anesthesia and strict aseptic precautions, a 6-Andorran introducer was placed in the right femoral artery. I used a left 3.5 curved Jared catheter to cannulate the left coronary artery. After initial injection, patient developed ST elevation. Initial EKG showed mild ST-T abnormality in the precordial leads, but this was a profound ST elevation with chest pain, suggesting that the ostial lesion was significant, very eccentric in location. I quickly advanced a whisper wire and placed it in the distal aspect of the diagonal branch. Without predilatation, I stented the proximal LAD with a 3.5 caliber 8 mm long Xience stent at 13 atmospheres. The patient had chest pain-free cardiac ST elevation. Excellent angiographic result was achieved. I then advanced a 2.5 caliber 12 mm long NC trek balloon and dilated the diagonal lesion from the ostium into the lesion and the lesion was located from the ostium until the proximal portion of the diagonal, but the tightest lesion was in the midportion of this area. The dilatation was performed from the ostium of the diagonal well beyond the lesion. I then used a 2.5 caliber 15 mm long Xience stent and deployed this at the ostium and covered the most tightest part of the lesion in the body of the diagonal branch. Excellent angiographic result was achieved without complication. Patient did not have any significant chest pain with the diagonal dilatation. Excellent angiographic result was achieved. The patient had transient hypotension requiring some IV fluids. The sheath was then taken out an Angio-Seal device used to secure hemostasis. I gave patient Angiomax bolus and infusion as per protocol. He was already on Plavix, but I gave additional 225 mg of Plavix. He was sent to the room in stable condition with excellent angiographic result involving the proximal LAD as well as the major diagonal branch with 2 drug-eluting stents. Moderate conscious sedation was provided for a total duration of 48 minutes with a combination of Versed and Benadryl. MMODL / IJN: [id number] /
--- NOTE | 2017-07-22 11:30 | LTR ---
Date: DATE OF SERVICE: 07/22/2017 RE: Robin Rees Dear Dr. Guzmán; Thank you for the opportunity to participate in the care of Mr. Robin Rees. This gentleman was brought in for possible FFR of LAD and stenting of diagonal, but because of significant EKG changes with injections and noting that the lesion was more significant, I went ahead and stented the proximal LAD and also the diagonal with excellent angiographic result. I expect he will be discharged tomorrow if he remains stable. Thank you for your referral and please call for questions. With kindest regards. Sincerely yours, MD CHEPE NuñezL / JOEYN: [id number] /
[2017-07-22] MEDS: SODIUM CHLORIDE 0.9% 1,000 ML IV SCH (14:00)
[2017-07-22 16:50] LABS: Glucose,Whole Blood 110 mg/dL (75-99)
[2017-07-22 20:57] LABS: Glucose,Whole Blood 111 mg/dL (75-99)
[2017-07-22] MEDS ORDERED: ATORVASTATIN 80 MG TAB PO SCH (21:00)
[2017-07-22] MEDS: ATENOLOL 50 MG TAB PO SCH (21:11)
[2017-07-23] MEDS: SODIUM CHLORIDE 0.9% 1,000 ML IV SCH (01:58)
[2017-07-23 06:06] LABS: Glucose,Whole Blood 114 mg/dL (75-99)
[2017-07-23 06:26] LABS: Basophils % (A) 0 %; CH 29.9; CHCM 33.2; Eosinophils # (A) 0.2 k/uL (0-0.7); Eosinophils % (A) 2 %; HCT 40.8 % (39.0-53.0); HDW 2.87; HGB 13.4 gm/dL (13.0-17.5); Luc # (Auto) 0.22; Luc % (Auto) 3; Lymphocytes # (A) 2.5 k/uL (1.0-4.8); Lymphocytes % (A) 28 %; MCH 29.6 pg (25.0-35.0); MCHC 32.7 g/dL (31.0-37.0); MCV 90.5 fL (80.0-100.0); Mean Platelet Volume 7.3; Monocytes # (A) 0.7 k/uL (0-1.0); Monocytes % (A) 7 %; Neutrophils # (A) 5.4 k/uL (1.3-7.7); Neutrophils % (A) 60 %; RBC 4.51 m/uL (4.30-5.90); RDW 14.2 % (11.5-15.5); WBC (Perox) 9.18
[2017-07-23 06:34] LABS: Anion Gap 9 mmol/L; Blood Urea Nitrogen 15 mg/dL (9-20); Calcium 9.3 mg/dL (8.4-10.2); Carbon Dioxide 26 mmol/L (22-30); Chloride 103 mmol/L (98-107); Glucose 116 mg/dL (74-99); Non-African American GFR(MDRD) >60 (>60 ml/min/1.73 sqM); Potassium 3.8 mmol/L (3.5-5.1); Sodium 138 mmol/L (137-145)
[2017-07-23] MEDS: ATENOLOL 50 MG TAB PO SCH (08:36)
[2017-07-23 08:43] VITALS: BP 140/75; PULSE 71; RESP 18; TEMP 98.6
[2017-07-23] MEDS ORDERED: ASPIRIN 81 MG PO SCH (09:00)
[2017-07-23] MEDS ORDERED: LISINOPRIL 20 MG TAB PO SCH (09:00)
[2017-07-23] MEDS ORDERED: [UNRECOGNIZED DRUG - OTHER] PO SCH (09:00)
[2017-07-23] MEDS ORDERED: NON-FORMULARY DRUG (Omega-3 Fatty Acids/Fish Oil [Fish Oil 1,000 Mg Softgel] 3 CAP) PO SCH (09:00)
[2017-07-23] MEDS ORDERED: ISOSORBIDE MONONITRATE ER 30 MG TAB.ER.24H PO SCH (09:00)
[2017-07-23] MEDS ORDERED: HYDROCHLOROTHIAZIDE 25 MG TAB PO SCH (09:00)
[2017-07-23] MEDS ORDERED: BENAZEPRIL PO SCH (09:00)
[2017-07-23] MEDS ORDERED: HYDROCHLOROTHIAZIDE PO SCH (09:00)
[2017-07-23] MEDS ORDERED: CLOPIDOGREL 75 MG TAB PO SCH (09:00)
--- NOTE | 2017-07-23 10:20 | ECHOF ---
Referral Reason:EKG CHANGES MEASUREMENTS -------- HEIGHT: 170.2 cm WEIGHT: 114.8 kg BP: IVSd: 1.4 cm (0.6 - 1.1) LVIDd: 5.1 cm (3.9 - 5.3) LVPWd: 1.4 cm (0.6 - 1.1) IVSs: 1.7 cm LVIDs: 3.7 cm LVPWs: 1.6 cm LAESV Index (A-L): 22.41 ml/m Ao Diam: 3.6 cm (2.0 - 3.7) AV Cusp: 1.8 cm (1.5 - 2.6) MV E Fly: 0.53 m/s MV DecT: 261 ms MV A Fly: 0.42 m/s MV E/A Ratio: 1.25 FINDINGS -------- Resting bradycardia (HR<60bpm). This was a technically difficult study with suboptimal views. The left ventricular size is normal. There is moderate concentric left ventricular hypertrophy. Overall left ventricular systolic function is mildly impaired with, an EF between 45 - 50 %. ANTERIOR/ANTEROSEPTAL HYPOKINESIS The right ventricle is normal in size and function. Normal LA size by volume 22+/-6 ml/m2. The right atrium is normal in size. 1.5mg of Definity was utilized for enhancement of images The aortic valve is trileaflet, and appears structurally normal. No aortic stenosis or regurgitation. The mitral valve leaflets are mildly thickened. There is trace mitral regurgitation. Trace tricuspid regurgitation present. Right ventricular systolic pressure is normal at < 35 mmHg. There is no evidence of pulmonary hypertension. The pulmonic valve was not well visualized. The aortic root size is normal. Normal inferior vena cava with normal inspiratory collapse consistent with estimated right atrial pressure of 5 mmHg. The pericardium is normal. There is no pericardial effusion. CONCLUSIONS -------- 1. Resting bradycardia (HR<60bpm). 2. The mitral valve leaflets are mildly thickened. 3. There is trace mitral regurgitation. 4. Trace tricuspid regurgitation present. 5. Right ventricular systolic pressure is normal at < 35 mmHg. 6. There is no evidence of pulmonary hypertension. 7. The pulmonic valve was not well visualized. 8. The aortic root size is normal. 9. There is no pericardial effusion. 10. This was a technically difficult study with suboptimal views. 11. The left ventricular size is normal. 12. There is moderate concentric left ventricular hypertrophy. 13. Overall left ventricular systolic function is mildly impaired with, an EF between 45 - 50 %. 14. ANTERIOR/ANTEROSEPTAL HYPOKINESIS 15. Normal LA size by volume 22+/-6 ml/m2. 16. 1.5mg of Definity was utilized for enhancement of images 17. The aortic valve is trileaflet, and appears structurally normal. No aortic stenosis or regurgitation. OSTRICH FARM WORKER: Kendall Vergara RDCS
[2017-07-23 11:45] LABS: Glucose,Whole Blood 96 mg/dL (75-99)
[2017-07-23] MEDS ORDERED: MULTIVITAMINS, THERA 1 EACH TAB PO SCH (12:00)
--- NOTE | 2017-07-23 12:33 | DS ---
DISCHARGE SUMMARY DATE OF ADMISSION: 07/22/2017 DATE OF DISCHARGE: 07/23/2017 PROCEDURES PERFORMED: 1. PTCA and stenting of proximal left anterior descending artery with a drug-eluting stent. 2. PTCA and stenting of the major diagonal branch with a drug-eluting stent. Mr. Rees was brought in for the procedure for elective FFR and intervention of the diagonal branch. However, when I injected the left ventricle I noted that he had significant ST-segment changes suggestive of ischemia and therefore I perform intervention of the proximal LAD with a drug-eluting stent and went on to perform the stenting of the diagonal branch as well. He had precordial ST changes. There is hypokinesia of the septum noted. This may be more of a stunning phenomena since the vessel was widely patent. Patient's postprocedure course was essentially unremarkable. His right groin is clean and dry with a good pulse. I am recommending that we will increase activity and discharge him later on today. Discharge instructions regarding activity, diet, medications were given. He is asymptomatic, ambulating without symptoms. Blood pressure today is 130/70, pulse rate is 64 per minute. No JVD or carotid bruit. S1, S2 heard normally. Lungs are clear. Abdomen and lower extremities exam unchanged. The right groin is clean and dry. There is a short systolic murmur at the base audible. Rest of physical examination is unchanged. He will be discharged today and I will see him in the office on Thursday. Discharge instructions regarding activity, diet, and medications were given. I will perform a follow-up echo in the office. MMODL / IJN: [id number] /
== END 2017-07-23 13:10 | disposition home or self-care (01) ==
LOC: CATHCVL 07:53 → 6SEL 10:30 → CATHCVL 07-23 13:10
PROVIDERS: ATTEND Internal Medicine Interventional Cardiology
DX: I25.10 Atherosclerotic heart disease of native coronary artery without angina pectoris (principal); Z95.5 Presence of coronary angioplasty implant and graft; R00.1 Bradycardia, unspecified; I10 Essential (primary) hypertension; E11.9 Type 2 diabetes mellitus without complications; E78.5 Hyperlipidemia, unspecified; E78.00 Pure hypercholesterolemia, unspecified; Z79.84 Long term (current) use of oral hypoglycemic drugs; Z79.82 Long term (current) use of aspirin; Z79.899 Other long term (current) drug therapy; Z82.49 Family history of ischemic heart disease and other diseases of the circulatory system; Z87.891 Personal history of nicotine dependence
CPT/HCPCS: 93306; 80048; 85025; C9600; C9601; C1760; C1769 ×4; C1887; C1725; C1894; C1874; J2001; J2250; J1170; J1200; Q9967; Q9957; J0583

== ENCOUNTER → 2017-10-15 | Outpatient (CLI) | payer BC ==
[2017-10-15 11:40] LABS: Anisocytosis Slight; Basophils # (A) 0.1 k/uL (0-0.2); Basophils % (A) 1 %; Eosinophils # (A) 0.2 k/uL (0-0.7); Eosinophils % (A) 2 %; HCT 32.4 % (39.0-53.0); HDW 3.84; Hypochromasia Moderate; Luc # (Auto) 0.14; Luc % (Auto) 2; Lymphocytes # (A) 2.2 k/uL (1.0-4.8); Lymphocytes % (A) 34 %; MCH 28.2 pg (25.0-35.0); MCHC 30.9 g/dL (31.0-37.0); MCV 91.1 fL (80.0-100.0); Mean Platelet Volume 8.3; Monocytes # (A) 0.4 k/uL (0-1.0); Monocytes % (A) 6 %; Neutrophils # (A) 3.5 k/uL (1.3-7.7); Neutrophils % (A) 55 %; Poikilocytosis Slight; RBC 3.55 m/uL (4.30-5.90); RDW 16.2 % (11.5-15.5); WBC 6.4 k/uL (3.8-10.6); WBC (Perox) 6.69
[2017-10-15 11:57] LABS: ALT 41 U/L (21-72); AST 22 U/L (17-59); Alkaline Phosphatase 70 U/L (38-126); Anion Gap 9 mmol/L; Blood Urea Nitrogen 16 mg/dL (9-20); Calcium 9.4 mg/dL (8.4-10.2); Carbon Dioxide 30 mmol/L (22-30); Chloride 104 mmol/L (98-107); Glucose 125 mg/dL (74-99); Non-African American GFR(MDRD) >60 (>60 ml/min/1.73 sqM); Potassium 4.5 mmol/L (3.5-5.1); Sodium 143 mmol/L (137-145); Total Bilirubin 0.5 mg/dL (0.2-1.3); Total Protein 6.5 g/dL (6.3-8.2)
== END | disposition home or self-care (01) ==
LOC: LABWHC1 11:14
PROVIDERS: ATTEND Hospitalist
DX: K29.70 Gastritis, unspecified, without bleeding (principal); Z11.59 Encounter for screening for other viral diseases
CPT/HCPCS: 36415; 80053; 80074; 85025

== ENCOUNTER → 2017-10-29 | Outpatient (CLI) | payer BC ==
[2017-10-29 10:47] LABS: Basophils % (A) 1 %; Eosinophils # (A) 0.2 k/uL (0-0.7); Eosinophils % (A) 2 %; HCT 35.1 % (39.0-53.0); HGB 10.7 gm/dL (13.0-17.5); Hypochromasia Marked; Lymphocytes # (A) 2.4 k/uL (1.0-4.8); Lymphocytes % (A) 34 %; MCH 26.6 pg (25.0-35.0); MCHC 30.6 g/dL (31.0-37.0); Mean Platelet Volume 8.3; Monocytes # (A) 0.5 k/uL (0-1.0); Monocytes % (A) 7 %; Neutrophils # (A) 3.9 k/uL (1.3-7.7); Neutrophils % (A) 54 %; Platelet Count 210 k/uL (150-450); Poikilocytosis Marked; RBC 4.04 m/uL (4.30-5.90); WBC 7.3 k/uL (3.8-10.6)
== END ==
LOC: LABWHC1 10:29
PROVIDERS: ATTEND Family Medicine
DX: K92.2 Gastrointestinal hemorrhage, unspecified (principal)
CPT/HCPCS: 36415; 85025

== ENCOUNTER → 2018-08-23 | Outpatient (CLI) | payer BC ==
[2018-08-23 16:26] LABS: HCT 45.2 % (39.0-53.0); HGB 15.2 gm/dL (13.0-17.5); MCH 29.6 pg (25.0-35.0); MCHC 33.6 g/dL (31.0-37.0); Platelet Count 181 k/uL (150-450); RBC 5.14 m/uL (4.30-5.90); WBC 9.1 k/uL (3.8-10.6)
[2018-08-23 16:37] LABS: ALT 44 U/L (21-72); AST 27 U/L (17-59); Albumin 4.4 g/dL (3.5-5.0); Albumin/Globulin Ratio 1.5; Alkaline Phosphatase 83 U/L (38-126); Anion Gap 8 mmol/L; Blood Urea Nitrogen 16 mg/dL (9-20); Calcium 10.4 mg/dL (8.4-10.2); Carbon Dioxide 29 mmol/L (22-30); Chloride 103 mmol/L (98-107); Glucose 102 mg/dL (74-99); Potassium 4.2 mmol/L (3.5-5.1); Sodium 140 mmol/L (137-145); Total Bilirubin 0.9 mg/dL (0.2-1.3); Total Protein 7.4 g/dL (6.3-8.2)
[2018-08-23 16:57] LABS: Creatine Kinase MB 0.6 ng/mL (0.0-2.4); Troponin I <0.012 ng/mL (0.000-0.034)
== END | disposition home or self-care (01) ==
LOC: LABWHC1 15:31
PROVIDERS: ATTEND Nurse Practitioner Adult Health
DX: R07.9 Chest pain, unspecified (principal)
CPT/HCPCS: 36415; 80053; 82553; 83880; 84484; 85027

== ENCOUNTER → 2018-11-02 | Outpatient (CLI) | payer BC ==
--- NOTE | 2018-11-02 13:02 | CONS ---
CONSULTATION Consultation note for sleep apnea. A 63-year-old male patient established having a diagnosis of obstructive sleep apnea many years back. His original diagnosis was confirmed here at the sleep center and following that, approximately 2 years ago the patient had re-evaluation at the [facility]. Currently, he using a Respironics CPAP unit which is set at a pressure of 17 cm of water and he using a Mirage Quattro full face mask. The polysomnogram report is not available to me. Yet I suspect that the patient has at least some degree of severe obstructive sleep apnea. The patient for now is doing well. No major fatigue or sleepiness during the day. No snoring while on CPAP treatment. Denies having stop breathing during sleep while on the CPAP. No issues with insomnia. No issues which choking or gasping for air. No nocturia. No grinding of the teeth. Waking up alert and refreshed without any dry mouth. At times he has some problems with concentration and memory. He is not falling asleep at times that are not undesired. He is feeling more fatigued and tired and he wanted his ERIC to be re-evaluated. His current Hinsdale Score is at 19. I do not have a CPAP unit with him today to check his compliancy data to make further recommendations. Yet for the most part, the patient seems to be compliant. He has been utilizing his CPAP every night and apparently is going to bed around 12:30 a.m., waking up 10 a.m. in the morning, averaging around 9 hours of sleep. No recent changes in medication. No history of CVA. No history of head trauma. No history of anxiety. No history of depression. PAST MEDICAL HISTORY: 1. Obesity. 2. Obstructive sleep apnea, maintained on CPAP at pressure of 17. 3. Coronary artery disease with previous coronary intervention and stenting. 4. Diabetes. 5. Hyperlipidemia. 6. Hypertension. PAST SURGICAL HISTORY: Past surgical history includes cardiac catheterization and insertion of coronary stents. DRUG ALLERGIES: Not known. MEDICATION: Outpatient medication list includes: 1. Lipitor 80 q. day. 2. Metformin 500 mg p.o. q. day. 3. Albuterol ProAir rescue inhaler p.r.n. 4. Aspirin 81 mg p.o. q. day. 5. Atenolol 50 mg p.o. q. day. 6. Benazepril hydrochlorothiazide 20/12.5 two tablets a day. 7. Plavix 75 q. day. 8. Imdur 30 mg p.o. daily. 9. Multivitamin 1 tablet a day. 10.Niacin 1000 mg at bedtime. 11.King[place]-3 fatty oil. 12.Omeprazole 20 mg p.o. q. day. SOCIAL HISTORY: Ex-smoker. No history of alcoholism. No history of IV drugs. FAMILY HISTORY: Negative for sleep apnea. REVIEW OF SYSTEMS: Twelve-point review of system was done. He has been having more fatigue and tiredness recently with some degree of sleepiness and he wanted to be evaluated further. No depression. No anxiety. No claustrophobia. No sexual dysfunction. No restlessness in lower extremities. No palpitation. No anxiety. No panic. No active symptoms of angina. His weight is up and the patient has been gradually gaining weight over the years. The exact amount of weight gain since diagnosis unknown although this is suspected to be more than 10 to 15 pounds. No naps during the day. PHYSICAL EXAMINATION: BP 144/70, pulse 64, respirations 16, temperature 97.9 saturation 96% on room air. Weight is 269. Height is 5 feet 7 inches. Neck size is 19-1/2 inches. BMI 41.3. GENERAL APPEARANCE: Calm, comfortable. Head is atraumatic, normocephalic. Neck is supple. There is no JVD. No goiter or neck masses. Mallampati class IV. LUNGS: Clear to auscultation. HEART: Sounds regular rate and rhythm. Normal S1, S2. No S3. No murmurs. ABDOMEN: Soft, nontender. No organomegaly. EXTREMITIES: No edema. No cyanosis or clubbing. NEUROLOGIC: The patient is alert and oriented x3. No focal neurological deficits. PSYCHIATRIC: Negative for anxiety or depression. SKIN: Negative for any wounds or ulceration. IMPRESSION: 1. Obstructive sleep apnea currently on CPAP with a pressure of 17 cm of water utilizing a full face mask, a Mirage Quattro full face mask. 2. Hypersomnia needs to be re-evaluated as far as the efficiency of his CPAP unit and his compliancy data. 3. Obesity with a body mass index of 41.3. 4. Coronary artery disease with recent coronary intervention and stenting. 5. Hypertension. 6. Hyperlipidemia. 7. Diabetes mellitus. PLAN: I am asking this patient to bring his CPAP unit with him. I would like to make sure that the machine is functioning. At the same time, would like to check his compliance data and make sure the patient is demonstrating enough number of hours of use and that the treatment is affective where he is able to achieve an AHI of less than 5 while on treatment. If not, we will make appropriate adjustments. He also requests a pulmonary evaluation. For all these reasons, I referred this patient to the pulmonary clinic to have both a pulmonary evaluation and follow-up check on his CPAP unit. MICHAEL / JOEYN: [id number] /
== END | disposition home or self-care (01) ==
LOC: SLEEP 10:36
PROVIDERS: ATTEND Internal Medicine Critical Care Medicine
DX: G47.33 Obstructive sleep apnea (adult) (pediatric) (principal); E66.9 Obesity, unspecified; I25.10 Atherosclerotic heart disease of native coronary artery without angina pectoris; I10 Essential (primary) hypertension; E78.5 Hyperlipidemia, unspecified; E11.9 Type 2 diabetes mellitus without complications; Z68.41 Body mass index [BMI] 40.0-44.9, adult; Z87.891 Personal history of nicotine dependence; Z99.89 Dependence on other enabling machines and devices; Z95.5 Presence of coronary angioplasty implant and graft; Z79.84 Long term (current) use of oral hypoglycemic drugs; Z79.82 Long term (current) use of aspirin; Z79.02 Long term (current) use of antithrombotics/antiplatelets; Z79.899 Other long term (current) drug therapy
CPT/HCPCS: 99211

== ENCOUNTER → 2018-11-24 | Outpatient (CLI) | payer BC ==
[2018-11-24 12:02] LABS: HCT 45.5 % (39.0-53.0); HGB 14.7 gm/dL (13.0-17.5); MCHC 32.4 g/dL (31.0-37.0); MCV 89.6 fL (80.0-100.0); Mean Platelet Volume 6.4; Platelet Count 193 k/uL (150-450); RBC 5.08 m/uL (4.30-5.90); WBC 8.5 k/uL (3.8-10.6)
[2018-11-24 12:07] LABS: Anion Gap 9 mmol/L; Blood Urea Nitrogen 17 mg/dL (9-20); Calcium 9.9 mg/dL (8.4-10.2); Carbon Dioxide 30 mmol/L (22-30); Chloride 103 mmol/L (98-107); Glucose 136 mg/dL (74-99); Potassium 4.3 mmol/L (3.5-5.1); Sodium 142 mmol/L (137-145)
== END | disposition home or self-care (01) ==
LOC: LABPAT 10:56
PROVIDERS: ATTEND Internal Medicine Interventional Cardiology
DX: Z01.812 Encounter for preprocedural laboratory examination (principal); I25.10 Atherosclerotic heart disease of native coronary artery without angina pectoris
CPT/HCPCS: 36415; 80048; 85027

== ENCOUNTER 2018-11-30 06:08 | Day surgery (SDC) | payer BC ==
[2018-11-26 12:32] VITALS: BMI 40.7
[~2018-11-30 06:08] MED LIST changes: -ATORVASTATIN 80 MG TAB PO STA
[2018-11-30 06:53] LABS: Glucose,Whole Blood 140 mg/dL (75-99)
[2018-11-30] MEDS ORDERED: ATORVASTATIN 80 MG TAB PO ONE (07:00)
[2018-11-30] MEDS ORDERED: LIDOCAINE 1% INJ 10MG/ML (20 ML MDV) ONE (07:16)
[2018-11-30] MEDS ORDERED: MIDAZOLAM 2 MG/2 ML VIAL IV ONE (07:55)
[2018-11-30] MEDS ORDERED: LIDOCAINE 1% INJ 10MG/ML (20 ML MDV) SQ ONE (08:01)
[2018-11-30] MEDS ORDERED: BIVALIRUDIN BOLUS 250 MG/50 ML IV ONE (08:17)
[2018-11-30] MEDS ORDERED: BIVALIRUDIN 250 MG in SODIUM CHLORIDE 0.9% 40 ML IV ONE ×2 (08:18→08:49)
[2018-11-30] MEDS ORDERED: IOPAMIDOL-250 100ML BTL INTRAARTER ONE ×2 (08:30→09:16)
[2018-11-30] MEDS ORDERED: IOPAMIDOL-300 100ML BTL INJ ONE (08:30)
[2018-11-30] MEDS: NITROGLYCERIN 1000MCG/10ML SYRINGE INTRACORON ONE ×2 (08:35→09:11)
[2018-11-30] MEDS ORDERED: ADENOSINE 3 MG/ML 4 ML VIAL IVP ONE (08:54)
[2018-11-30] MEDS ORDERED: SODIUM CHLORIDE 0.9% 100 ML BAG ONE (08:54)
[2018-11-30] MEDS ORDERED: NITROGLYCERIN SL TABS 0.4 MG TAB SUBLINGUAL ONE ×2 (08:55→08:57)
[2018-11-30] MEDS ORDERED: CLOPIDOGREL 75 MG TAB ONE (09:14)
[2018-11-30] MEDS ORDERED: CLOPIDOGREL 75 MG TAB PO ONE (09:16)
[2018-11-30] MEDS ORDERED: PSYLLIUM HUSK 100% 6 GM PACKET PO PRN (09:26)
[2018-11-30] MEDS ORDERED: HYDROmorphone 2 MG/ML 1 ML SYRINGE IV ONE (09:26)
[2018-11-30] MEDS ORDERED: ATROPINE SULFATE 0.1 MG/ML 10ML SYRINGE IV PRN (09:29)
[2018-11-30] MEDS ORDERED: MAG HYDROX/AL HYDROX/SIMETH 30 ML CUP PO PRN (09:29)
[2018-11-30] MEDS ORDERED: RX INFO: IV CONTRAST WAS GIVEN 1 EACH MISC MISCELLANE PRN (09:29)
[2018-11-30 11:55] LABS: Glucose,Whole Blood 155 mg/dL (75-99)
[2018-11-30] MEDS: SODIUM CHLORIDE 0.9% 1,000 ML IV SCH ×2 (12:40→19:46)
[2018-11-30 16:46] LABS: Glucose,Whole Blood 116 mg/dL (75-99)
[2018-11-30] MEDS: INSULIN ASPART 100 UNIT/ML 1 ML 10 ML VIAL SQ SCH ×2 (16:51→20:40)
[2018-11-30] MEDS: ATENOLOL 50 MG TAB PO SCH (19:46)
[2018-11-30 20:38] LABS: Glucose,Whole Blood 110 mg/dL (75-99)
[2018-11-30] MEDS ORDERED: NIACIN TR 500 MG CAPSULE.ER PO SCH (21:00)
[2018-11-30] MEDS ORDERED: ATORVASTATIN 80 MG TAB PO SCH (23:00)
[2018-12-01 06:19] LABS: Glucose,Whole Blood 124 mg/dL (75-99)
[2018-12-01] MEDS: INSULIN ASPART 100 UNIT/ML 1 ML 10 ML VIAL SQ SCH ×2 (06:24→12:10)
[2018-12-01 06:32] LABS: Basophils % (A) 0 %; Eosinophils # (A) 0.2 k/uL (0-0.7); Eosinophils % (A) 2 %; HCT 41.8 % (39.0-53.0); HGB 13.6 gm/dL (13.0-17.5); Lymphocytes # (A) 3.3 k/uL (1.0-4.8); Lymphocytes % (A) 35 %; MCH 28.9 pg (25.0-35.0); MCHC 32.6 g/dL (31.0-37.0); MCV 88.4 fL (80.0-100.0); Mean Platelet Volume 6.6; Monocytes # (A) 0.6 k/uL (0-1.0); Monocytes % (A) 6 %; Neutrophils # (A) 5.2 k/uL (1.3-7.7); Neutrophils % (A) 54 %; Platelet Count 155 k/uL (150-450); RBC 4.72 m/uL (4.30-5.90); WBC 9.5 k/uL (3.8-10.6)
[2018-12-01 06:42] LABS: Anion Gap 5 mmol/L; Blood Urea Nitrogen 15 mg/dL (9-20); Calcium 9.1 mg/dL (8.4-10.2); Carbon Dioxide 31 mmol/L (22-30); Chloride 104 mmol/L (98-107); Glucose 119 mg/dL (74-99); Sodium 140 mmol/L (137-145)
[2018-12-01] MEDS ORDERED: ISOSORBIDE MONONITRATE ER 30 MG TAB.ER.24H PO SCH (09:00)
[2018-12-01] MEDS ORDERED: CLOPIDOGREL 75 MG TAB PO SCH (09:00)
[2018-12-01] MEDS ORDERED: NON-FORMULARY DRUG (Omega-3 Fatty Acids/Fish Oil [Fish Oil 1,000 Mg Softgel] 3 CAP) PO SCH (09:00)
[2018-12-01] MEDS ORDERED: ASPIRIN 81 MG PO SCH (09:00)
[2018-12-01] MEDS ORDERED: HYDROCHLOROTHIAZIDE 25 MG TAB PO SCH (09:00)
[2018-12-01] MEDS ORDERED: LISINOPRIL 20 MG TAB PO SCH (09:00)
[2018-12-01] MEDS ORDERED: GINGER 500 MG PO SCH (09:00)
[2018-12-01] MEDS: ATENOLOL 50 MG TAB PO SCH (10:12)
[2018-12-01 10:45] VITALS: RESP 18; TEMP 97.2
[2018-12-01] MEDS ORDERED: MULTIVITAMINS, THERA 1 EACH TAB PO SCH (12:00)
[2018-12-01 12:04] LABS: Glucose,Whole Blood 128 mg/dL (75-99)
[2018-12-01 12:14] VITALS: BP 145/84; PULSE 63
--- NOTE | 2018-12-01 13:22 | P.PN ---
Subjective Progress Note Date: 12/01/18 Discharge note Is is a 63-year-old gentleman admitted to the hospital by Dr. MATTHEW Andersen yesterday, underwent angioplasty and stenting of the LAD, he was seen and examined this morning, denies any chest pain or difficulty in breathing. He's been up ambulating without any difficulty. EKG from this morning shows a sinus bradycardia with a left bundle-branch block pattern. Blood pressure 144/84, heart rate in the 60s, 96% on room air. CBC is normal, sodium 140, potassium 4.0, BUN 15, creatinine 0.8. Objective - Vital Signs Vital signs: Vital Signs Temp 97.2 F L 12/01/18 12:12 Pulse 63 12/01/18 12:12 Resp 18 12/01/18 12:12 BP 145/84 12/01/18 12:12 Pulse Ox 96 12/01/18 12:12 Intake & Output 11/30/18 12/01/18 12/01/18 18:59 06:59 18:59 Intake Total 1150.7 1200 240 Balance 1150.7 1200 240 Weight 117.934 kg 121 kg Intake: IV 470.7 Sodium Chloride 0.9% 1, 75 000 ml @ 75 mls/hr IV . [id number] KOLE Rx#:[id number] Intake, IV Titration 1200 Amount Sodium Chloride 0.9% 1, 1200 000 ml @ 75 mls/hr IV . [id number] KOLE Rx#:[id number] Oral 680 240 Other: Voiding Method Toilet - Exam PHYSICAL EXAMINATION: GENERAL: 63-year-old gentleman in no acute distress at the time of my examination HEENT: Head is atraumatic, normocephalic. Pupils equal, round. Sclera anicteric. Conjunctiva are clear. Mucous membranes of the mouth are moist. Neck is supple. There is no elevated jugular venous pressure. No carotid bruit is heard. HEART EXAMINATION: Heart S1, S2 normal. No murmur or gallop heard. CHEST EXAMINATION: Lungs are clear to auscultation and precussion. No chest wall tenderness is noted on palpation or with deep breathing. ABDOMEN: Soft, nontender. Bowel sounds are heard. No organomegaly noted. EXTREMITIES: 2+ peripheral pulses with no evidence of peripheral edema and no calf tenderness noted. Right groin soft, no evidence of any hematoma. NEUROLOGIC patient is awake, alert and oriented 3 . . - Labs CBC & Chem 7: 12/01/18 05:26 12/01/18 05:26 Labs: Abnormal Lab Results - Last 24 Hours (Table) 11/30/18 11/30/18 12/01/18 Range/Units 16:44 20:37 05:26 Carbon Dioxide 31 H (22-30) mmol/L Glucose 119 H (74-99) mg/dL POC Glucose (mg/dL) 116 H 110 H (75-99) mg/dL 12/01/18 12/01/18 Range/Units 06:17 11:59 Carbon Dioxide (22-30) mmol/L Glucose (74-99) mg/dL POC Glucose (mg/dL) 124 H 128 H (75-99) mg/dL Assessment and Plan Plan: Assessment and plan #1 status post angioplasty and stenting of the LAD #2 diabetes #3 hypertension #4 hyperlipidemia #5 nicotine dependence #6 family history of premature coronary artery disease Plan the patient may be discharged home today, follow-up appointment as scheduled in the office with Dr. Eldon Andersen. Discharge medications include aspirin 81 mg daily, atenolol 50 mg twice a day, Lipitor 80 mg daily, Plavix 75 mg daily, hydrochlorothiazide 25 daily, Imdur 30 mg daily, lisinopril 40 mg daily, niacin and multivitamin, sublingual nitroglycerin as needed for chest pain. DNP note has been reviewed, I agree with a documented findings and plan of care. Patient was seen and examined.
[2018-12-01 13:44] LABS: Hemoglobin A1C 6.3 % (4.0-6.0)
--- NOTE | 2018-12-01 18:05 | CC ---
CARDIAC CATHETERIZATION REPORT DATE OF SERVICE: 11/30/2018. PROCEDURE: 1. Left heart catheterization and coronary angiography. 2. PTCA and stenting of a complex bifurcation lesion involving the LAD and diagonal with drug-eluting stents. PERFORMED BY: Dr. Ozzy Andersen. SEDATION: Moderate conscious sedation time was 74 minutes. CLINICAL INFORMATION: Mr. Robin Rees is a 63-year-old gentleman with a known history of CAD, hypertension, hyperlipidemia, type 2 diabetes. In August. I performed stenting of the right coronary artery on this patient. At that time, he had a significant disease in the diagonal branch, but there was also a lesion immediately after the diagonal involving the LAD which was questionable and therefore I asked him to come in for a repeat cardiac cath to check patency of RCA and then do FFR if necessary of LAD and also perform intervention of the diagonal branch. Risks, benefits, options were explained and patient was brought in for the procedure electively. PROCEDURE NOTE: Under local anesthesia and strict aseptic precautions, a 6-Scottish introducer was placed in the right femoral artery. Using a standard right Jared catheter, I performed coronary angiography of the right coronary artery. I noted that this vessel was widely patent. I also checked LV pressures but did not perform an LV-gram. LV end-diastolic pressure was about 12-13 mmHg without any gradient across the aortic valve. I then proceeded to perform with a 3.5 curved left Jared type guide catheter, selective coronary angiography of the left system. Coronary angiography revealed that the diagonal branch immediately at its ostium had a 70% to 80% stenosis, but beyond the ostium, there was a stented segment and the stented segment was widely patent. The LAD after the diagonal had a 70% stenosis as well. I decided not to pursue FFR, but instead perform intervention of both these vessels as a bifurcation lesion. I proceeded to perform this in the same setting. CARDIAC CATHETERIZATION FINDINGS: The left ventricular end-diastolic pressure was 12-14 mmHg with a gradient of less than 15 mmHg across the aortic valve. This was based on a pullback gradient. SELECTIVE CORONARY ANGIOGRAPHY: 1. RIGHT CORONARY ARTERY: This vessel is widely patent at the site of previous stenting in the midportion and bifurcates distally into PDA and PLV both of which supply a sizable amount of myocardium. No significant disease is noted in the RCA and stented segment is patent. 2. 3. LEFT MAIN CORONARY ARTERY: Short, patent vessel that immediately bifurcates into LAD and circumflex. No significant disease. 4. 5. LEFT ANTERIOR DESCENDING CORONARY ARTERY. Proximal LAD has a stent in place. Widely patent. In the mid LAD, immediately after the diagonal, there is a 70% stenosis and then beyond that, there is another 40% stenosis. The diagonal branch at its ostium is a 70% to 80% stenosis. The diagonal branch that was stented is patent and the stent is located just after the ostium and widely patent. 6. LEFT POSTERIOR CIRCUMFLEX CORONARY ARTERY: Nondominant vessel, has minor irregularities. No significant disease. 7. PCI of LAD and diagonal was advised and I performed the procedure in the same setting. PCI PROCEDURE DETAILS: The patient was administered 150 mg of Plavix. He was already on Plavix to begin with. He received Angiomax bolus and infusion as per protocol. A 3.5 left Jared guide catheter was used to cannulate the left coronary artery. I used a run-through long wire to cross the lesion in the LAD and wire was kept distally towards the apex. A short run-through wire was used to cross the lesion in the diagonal and wire was kept in the distal aspect of the diagonal branch. I pre-dilated the diagonal lesion with a 2.5 caliber NC Trek balloon. I then deployed a 2.5 caliber 8 mm long Xience stent with the proximal marker of the stent located just before the ostium of the diagonal, such that the stent would cover the ostium affectively. This was deployed at 14 atmospheres. Subsequently, I tried to advance a 2.5 balloon into the LAD, but I had difficulty because probably a strut of the diagonal stent was in the way. I then used a 1.5 caliber 12 mm Trek balloon. With this, I gave initial dilatation of the LAD before and after the diagonal branch. I then went to a 2.0 and later on to a 2.5 caliber 12 mm Trek balloon. After I dilated with a Trek balloon at 2.5, I was able to easily advance a 12 mm long Lincoln 2.0 caliber stent and this stent was positioned before and after the diagonal. The stent was deployed at 15 atmospheres. I then post dilated the stent with a 3.0 caliber 12 mm long NC Trek balloon at 14 atmospheres. Excellent angiographic result was achieved. The diagonal stent was crushed. Final angiograms revealed that the diagonal vessel as well as the LAD were widely patent with remarkably good angiographic appearance and flow. I did not perform a kissing balloon. Instead, I performed individual dilatation of both LAD and diagonal branches with 2.5 and 3.0 balloons. Excellent angiographic result was achieved. The sheath was taken out and Angio-Seal device used to secure hemostasis and he was sent to the room in a stable condition. MMODL / JOEYN: [id number] /
== END 2018-12-01 15:07 | disposition home or self-care (01) ==
LOC: CATHCVL 06:08 → 3SCARD 11:30 → CATHCVL 12-01 15:07
PROVIDERS: ATTEND Internal Medicine Interventional Cardiology
DX: I25.10 Atherosclerotic heart disease of native coronary artery without angina pectoris (principal); I44.7 Left bundle-branch block, unspecified; I10 Essential (primary) hypertension; E78.5 Hyperlipidemia, unspecified; E78.00 Pure hypercholesterolemia, unspecified; E11.9 Type 2 diabetes mellitus without complications; Z82.49 Family history of ischemic heart disease and other diseases of the circulatory system; Z95.5 Presence of coronary angioplasty implant and graft; Z79.84 Long term (current) use of oral hypoglycemic drugs; Z79.02 Long term (current) use of antithrombotics/antiplatelets; Z79.82 Long term (current) use of aspirin; Z79.899 Other long term (current) drug therapy; Z72.0 Tobacco use
CPT/HCPCS: 93458; 80048; 85025; 83036; C9600; C9601; C1760; C1887; C1725 ×5; C1769 ×4; C1894; C1874 ×2; J2250; J1170; J2001; J0583; J0153; Q9966

== ENCOUNTER 2019-07-15 07:01 | Day surgery (SDC) | payer BC, OTHER ==
[2019-06-29 10:59] VITALS: BMI 41.3
[~2019-07-15 07:01] MED LIST changes: -ALPRAZolam 0.25 MG TAB PO PRN; -ALPRAZolam 0.5 MG TAB PO PRN; -ASPIRIN 325 MG TAB PO STA; +LIDOCAINE 1% 20 ML VIAL (10MG/ML) FOR IV START INTRADERMA PRN; -NITROGLYCERIN SL TABS 0.4 MG TAB SUBLINGUAL PRN; -SODIUM CHLORIDE 0.9% 1,000 ML in EMPTY BAG 1 BAG IV ONE
[2019-07-15 07:18] LABS: Glucose,Whole Blood 124 mg/dL (75-99)
[2019-07-15 07:21] VITALS: TEMP 97.4
[2019-07-15] MEDS: LACTATED RINGERS 1,000 ML IV SCH ×2 (07:21→07:48)
[2019-07-15] MEDS ORDERED: PROPOFOL 10 MG/ML 20 ML VIAL IV ONE (07:28)
[2019-07-15] MEDS ORDERED: IV FLUID CONTINUATION 500 ML IV ONE (07:50)
--- NOTE | 2019-07-15 07:51 | P.PCN ---
Date of Procedure: 07/15/19 Procedure(s) Performed: BRIEF HISTORY: Patient is a 64-year-old pleasant white male, scheduled for an elective colonoscopy as a part of evaluation of Hemoccult-positive stool. No prior history of colonoscopy. PROCEDURE PERFORMED: Colonoscopy snare polypectomy. PREOPERATIVE DIAGNOSIS: Hemoccult-positive stool. IV sedation per Anesthesia. PROCEDURE: After informed consent was obtained, the patient, was brought into the endoscopy unit. IV sedation was administered by Anesthesia under continuous monitoring. Digital rectal examination was normal. Initially the Olympus CF-160 flexible video colonoscope was then inserted in the rectum, gradually advanced into the cecum without any difficulty. Careful examination was performed as the scope was gradually being withdrawn. Ileocecal valve and the appendiceal orifice were visualized and appeared normal. Prep was excellent. Mucosa of the cecum, ascending colon, appeared normal. In the transverse colon there was a 3 mm and 5 mm sessile polyps removed by snare polypectomy. In the descending colon there was a 1 m broad-based polyp removed by snare polypectomy. In the sigmoid colon there was another 1 m broad-based polyp removed by snare polypectomy. In the proximal rectum there was a 5 limited polyp removed by snare polypectomy. Rest of the transverse colon, descending colon, sigmoid colon, and rectum appeared normal. Retroflexion was performed in the rectum and no lesions were seen. The patient tolerated the procedure well. IMPRESSION: 3 mm and 5 mm sessile transverse colon polyp status post polypectomy 1 cm descending colon polyp status post polypectomy 1 cm sigmoid colon polyp status post snare polypectomy 5 mm proximal rectal polyp status post polypectomy RECOMMENDATIONS: Findings of this examination were discussed with the patient as well as his family. He was advised to follow with the biopsies. If the biopsy shows an adenoma he can have a repeat colonoscopy in 3 years.
[2019-07-15 08:07] VITALS: BP 137/83; PULSE 55; RESP 18
== END 2019-07-15 08:40 | disposition home or self-care (01) ==
LOC: ORWHC2ENDO 07:01
PROVIDERS: ATTEND Internal Medicine Gastroenterology
DX: D12.3 Benign neoplasm of transverse colon (principal); K63.5 Polyp of colon; D12.5 Benign neoplasm of sigmoid colon; K62.1 Rectal polyp; I10 Essential (primary) hypertension; I25.2 Old myocardial infarction; I25.10 Atherosclerotic heart disease of native coronary artery without angina pectoris; J44.9 Chronic obstructive pulmonary disease, unspecified; E78.5 Hyperlipidemia, unspecified; E11.9 Type 2 diabetes mellitus without complications; G47.33 Obstructive sleep apnea (adult) (pediatric); M19.90 Unspecified osteoarthritis, unspecified site; R41.3 Other amnesia; E66.9 Obesity, unspecified; Z79.82 Long term (current) use of aspirin; Z79.02 Long term (current) use of antithrombotics/antiplatelets; Z79.899 Other long term (current) drug therapy; Z87.891 Personal history of nicotine dependence; Z99.89 Dependence on other enabling machines and devices; Z95.5 Presence of coronary angioplasty implant and graft; Z68.41 Body mass index [BMI] 40.0-44.9, adult
CPT/HCPCS: 88305; 45385; J2704

== ENCOUNTER 2019-11-08 23:35 | Observation (INO) | payer OTHER ==
[2019-11-09 00:05] LABS: Basophils # (A) 0.1 k/uL (0-0.2); Basophils % (A) 2 %; Eosinophils # (A) 0.3 k/uL (0-0.7); Eosinophils % (A) 3 %; HCT 48.2 % (39.0-53.0); HGB 16.2 gm/dL (13.0-17.5); Lymphocytes # (A) 2.3 k/uL (1.0-4.8); Lymphocytes % (A) 26 %; MCH 30.2 pg (25.0-35.0); MCHC 33.7 g/dL (31.0-37.0); MCV 89.8 fL (80.0-100.0); Mean Platelet Volume 7.2; Monocytes # (A) 0.6 k/uL (0-1.0); Monocytes % (A) 6 %; Neutrophils # (A) 5.5 k/uL (1.3-7.7); Neutrophils % (A) 62 %; Platelet Count 174 k/uL (150-450); RBC 5.37 m/uL (4.30-5.90); RDW 13.9 % (11.5-15.5); WBC 8.9 k/uL (3.8-10.6)
[2019-11-09 00:12] LABS: ALT 40 U/L (4-49); AST 39 U/L (17-59); African American GFR (CKD) >90 (>60 ml/min/1.73 sqM); Albumin 4.4 g/dL (3.5-5.0); Alkaline Phosphatase 109 U/L (38-126); Anion Gap 8 mmol/L; Blood Urea Nitrogen 13 mg/dL (9-20); Calcium 9.3 mg/dL (8.4-10.2); Carbon Dioxide 26 mmol/L (22-30); Chloride 108 mmol/L (98-107); Glucose 152 mg/dL (74-99); Magnesium 1.8 mg/dL (1.6-2.3); Non-African American GFR(CKD) >90 (>60 ml/min/1.73 sqM); Potassium 4.2 mmol/L (3.5-5.1); Sodium 142 mmol/L (137-145); Total Protein 7.1 g/dL (6.3-8.2)
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
[2019-11-09 00:20] LABS: INR 0.9 (<1.2); Partial Thromboplastin Time 24.2 sec (22.0-30.0); Prothrombin Time 9.8 sec (9.0-12.0)
--- NOTE | 2019-11-09 00:34 | XR ---
EXAMINATION TYPE: XR chest 2V DATE OF EXAM: 11/09/2019 COMPARISON: 12/06/2018 HISTORY: Chest pain TECHNIQUE: FINDINGS: Heart is normal. There is small linear density at the lung bases. There is no heart failure . There are no hilar masses. There is mild spurring in the thoracic spine. There are chest leads. The re is mild pleural thickening on the left and right lateral chest wall. IMPRESSION: Mild scarring or subsegmental atelectasis at the lung bases unchanged. Normal heart. Bilateral pleura l thickening also involving the lung apices could relate to pleural scarring or lipomatosis. Unchange d.
[2019-11-09] MEDS ORDERED: NITROGLYCERIN SL TABS 0.4 MG TAB SUBLINGUAL PRN (00:57)
[2019-11-09] MEDS ORDERED: ALBUTEROL NEBULIZED 2.5 MG/3 ML INHALATION PRN (00:59)
[2019-11-09] MEDS ORDERED: PSYLLIUM HUSK 100% 6 GM PACKET PO PRN ×2 (00:59→04:39)
[2019-11-09 06:54] LABS: Glucose,Whole Blood 102 mg/dL (75-99)
[2019-11-09] MEDS ORDERED: FISH OIL PO SCH (09:00)
[2019-11-09] MEDS ORDERED: FATTY ACIDS PO SCH (09:00)
[2019-11-09] MEDS ORDERED: OMEGA PO SCH (09:00)
[2019-11-09] MEDS ORDERED: SODIUM CHLORIDE 0.9% 1,000 ML in EMPTY BAG 1 BAG IV ONE (10:17)
[2019-11-09] MEDS: PANTOPRAZOLE 40 MG TABLET PO SCH (10:37)
[2019-11-09] MEDS: CLOPIDOGREL 75 MG TAB PO SCH (10:37)
[2019-11-09] MEDS: MULTIVITAMINS, THERA 1 EACH TAB PO SCH (10:38)
[2019-11-09] MEDS: ATENOLOL 50 MG TAB PO SCH ×2 (10:38→20:33)
[2019-11-09] MEDS: LISINOPRIL-HCTZ 20-12.5 MG 1 EACH TAB PO SCH (10:38)
[2019-11-09] MEDS: ISOSORBIDE MONONITRATE ER 30 MG TAB.ER.24H PO SCH (10:38)
[2019-11-09] MEDS: FERROUS SULFATE 325 MG TAB PO SCH (10:38)
--- NOTE | 2019-11-09 10:57 | ECHOF ---
Referral Reason:cp MEASUREMENTS -------- HEIGHT: 170.2 cm WEIGHT: 117.9 kg BP: 152/78 IVSd: 1.8 cm (0.6 - 1.1) LVIDd: 3.3 cm (3.9 - 5.3) LVPWd: 1.4 cm (0.6 - 1.1) IVSs: 1.8 cm LVIDs: 2.3 cm LVPWs: 2.0 cm Ao Diam: 3.4 cm (2.0 - 3.7) AV Cusp: 2.0 cm (1.5 - 2.6) LA Diam: 3.7 cm (2.7 - 3.8) MV EXCURSION: 18.395 mm (> 18.000) MV EF SLOPE: 115 mm/s (70 - 150) EPSS: 1.7 cm MV E Fly: 0.70 m/s MV DecT: 229 ms MV A Fly: 0.49 m/s MV E/A Ratio: 1.42 RAP: 5.00 mmHg RVSP: 12.23 mmHg FINDINGS -------- Left Bundle Branch Block This was a technically difficult study with suboptimal views. The left ventricular size is normal. There is moderate concentric left ventricular hypertrophy. O verall left ventricular systolic function is low-normal with, an EF between 50 - 55 %. The right ventricle is normal in size. The left atrial size is normal. The right atrial size is normal. Lumason used The aortic valve is trileaflet and appears structurally normal. The mitral valve is normal. There is trace mitral regurgitation. The tricuspid valve appears structurally normal. Trace tricuspid regurgitation present. Right freeman tricular systolic pressure is normal at < 35 mmHg. There is no pulmonic regurgitation present. The aortic root size is normal. IVC Not well visulized. There is no pericardial effusion. CONCLUSIONS -------- 1. Left Bundle Branch Block 2. This was a technically difficult study with suboptimal views. 3. The left ventricular size is normal. 4. There is moderate concentric left ventricular hypertrophy. 5. Overall left ventricular systolic function is low-normal with, an EF between 50 - 55 %. 6. The right ventricle is normal in size. 7. The left atrial size is normal. 8. The right atrial size is normal. 9. Lumason used 10. The aortic valve is trileaflet and appears structurally normal. 11. The mitral valve is normal. 12. There is trace mitral regurgitation. 13. The tricuspid valve appears structurally normal. 14. Trace tricuspid regurgitation present. 15. Right ventricular systolic pressure is normal at < 35 mmHg. 16. There is no pulmonic regurgitation present. 17. The aortic root size is normal. 18. IVC Not well visulized. 19. There is no pericardial effusion. BREAKER OFF: Kaylen Mcneil RDCS
--- NOTE | 2019-11-09 11:58 | CONS ---
CONSULTATION Mr. Rees is a 64-year-old gentleman who is seen for the cardiac evaluations. Patient's old medical records as well as emergency room records reviewed. Patient is admitted with intermittent chest pain, patient had an episode of chest pain yesterday while he was at work. The pain was in the substernal area across the chest associated with some nausea. Pain was moderate to severe. It lasted for 5-10 minutes. This patient has been having pain on and off for last 2-3 months. It comes frequently with exertion. Patient has a known history of coronary artery disease. He had a complex angioplasty of bifurcation, LAD done and also a stent to the right coronary artery done. There is no history of congestive cardiac failure. Patient has a history of hypertension. Home medications include Tenormin, benazepril, hydrochlorothiazide, Jardiance, iron, Imdur, aspirin, and Plavix and Lipitor 80 mg daily. REVIEW OF SYSTEMS: Otherwise unremarkable. PAST MEDICAL HISTORY: Includes prior stent placement and myocardial infarction, history of sleep apnea and using a CPAP machine. PHYSICAL EXAMINATION: At present reveals a 64-year-old, obesely-built gentleman who does not appear to be in any acute distress. In the emergency room, patient's vital signs were stable. His heart rate is 52 per minute, blood pressure is 152/78 mmHg. HEENT examination is negative. Neck is supple. There is no increase in jugular venous pressure. Both the carotid pulses are felt, there is no bruit. Chest is symmetrical. Heart, the PMI is not felt. First and second heart sounds are normal. There is no evidence of any murmur. Lungs are clinically clear to auscultation and percussion. Abdomen is soft. Liver and spleen are not enlarged. Bowel sounds are heard. Extremities, peripheral pulsations are 2+. EKG shows normal sinus rhythm with a QRS morphology suggestive of left bundle branch block pattern. FINAL IMPRESSION: This patient has been having intermittent chest discomfort suggestive of angina, which frequently occurs with activities where patient has a prior history of stent to the bifurcation, lesion of the LAD, as well as the right coronary artery, rule out any evidence of significant restenosis. We will add amlodipine 5 mg daily to control the blood pressure. MMODL / IJN: [id number] /
[2019-11-09 12:09] LABS: Glucose,Whole Blood 198 mg/dL (75-99)
[2019-11-09] MEDS: FAMOTIDINE 20 MG TAB PO SCH ×2 (12:33→20:33)
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
[2019-11-09] MEDS: Empagliflozin [Jardiance] 25 MG PO SCH (16:41)
[2019-11-09 16:59] LABS: Glucose,Whole Blood 109 mg/dL (75-99)
[2019-11-09] MEDS: ENOXAPARIN 40 MG/0.4 ML SYRINGE SQ SCH (17:42)
[2019-11-09] MEDS: ATORVASTATIN 40 MG TAB PO SCH (20:33)
[2019-11-09] MEDS ORDERED: NIACIN 1000 MG PO SCH (21:00)
[2019-11-10 03:18] LABS: Cholesterol 120 mg/dL (<200); HDL Cholesterol 31 mg/dL (40-60); LDL Cholesterol,Calculated 32 mg/dL (0-99); Triglycerides 286 mg/dL (<150)
[2019-11-10] MEDS: ISOSORBIDE MONONITRATE ER 30 MG TAB.ER.24H PO SCH (06:16)
[2019-11-10] MEDS: ATENOLOL 50 MG TAB PO SCH ×2 (06:17→20:35)
[2019-11-10] MEDS: FAMOTIDINE 20 MG TAB PO SCH ×2 (06:18→20:35)
[2019-11-10] MEDS: PANTOPRAZOLE 40 MG TABLET PO SCH (06:24)
[2019-11-10] MEDS: ASPIRIN 81 MG PO SCH (06:25)
[2019-11-10] MEDS: FERROUS SULFATE 325 MG TAB PO SCH (06:27)
[2019-11-10] MEDS: MULTIVITAMINS, THERA 1 EACH TAB PO SCH (06:27)
[2019-11-10] MEDS: LISINOPRIL-HCTZ 20-12.5 MG 1 EACH TAB PO SCH (06:27)
[2019-11-10 07:10] LABS: Glucose,Whole Blood 121 mg/dL (75-99)
[2019-11-10] MEDS: ENOXAPARIN 40 MG/0.4 ML SYRINGE SQ SCH (08:18)
[2019-11-10] MEDS: CLOPIDOGREL 75 MG TAB PO SCH (08:21)
[2019-11-10] MEDS ORDERED: ASPIRIN 325 MG TAB PO SCH (09:00)
[2019-11-10] MEDS: Empagliflozin [Jardiance] 25 MG PO SCH (09:15)
[2019-11-10] MEDS ORDERED: LIDOCAINE 1% INJ 10MG/ML (20 ML MDV) ONE (11:37)
[2019-11-10] MEDS ORDERED: NITROGLYCERIN SL TABS 0.4 MG TAB SUBLINGUAL ONE ×4 (11:52→12:23)
[2019-11-10] MEDS ORDERED: LIDOCAINE 1% INJ 10MG/ML (20 ML MDV) SQ ONE (11:55)
[2019-11-10] MEDS ORDERED: MIDAZOLAM 2 MG/2 ML VIAL IVP ONE (11:55)
[2019-11-10] MEDS ORDERED: IV FLUID CONTINUATION 1,000 ML IV ONE (12:00)
[2019-11-10] MEDS ORDERED: RX INFO: IV CONTRAST WAS GIVEN 1 EACH MISC MISCELLANE PRN (12:20)
[2019-11-10] MEDS ORDERED: IOPAMIDOL-370 100ML BTL INJ ONE (12:21)
[2019-11-10] MEDS ORDERED: amLODIPine 5 MG TAB PO SCH (12:30)
--- NOTE | 2019-11-10 12:48 | CC ---
CARDIAC CATHETERIZATION REPORT DATE OF SERVICE: 11/10/2019. PROCEDURE: Left heart catheterization and coronary angiography. PERFORMED BY: Dr. Ozzy Andersen. Moderate conscious sedation time was 23 minutes. CLINICAL INFORMATION: Mr. Robin Rees is a 64-year-old gentleman with a history of multivessel CAD, hypertension, hyperlipidemia, who underwent stenting of RCA and LAD over the years. The last intervention was that of LAD and diagonal bifurcation lesion performed in November of 2018. Prior to that in August of 2018, he had a stenting of mid RCA in the setting of a non-ST elevation [place]. Because of significant symptoms of angina, he was advised cardiac cath after due evaluation by Dr. Ha Maher. I went and saw the patient and talked to the family, explained the rationale, risks, benefits, options. They understood all details and wished to proceed with the procedure. The patient has a history of a difficult radial approach and therefore I went ahead with the femoral approach. He has a lot of scar tissue. PROCEDURE NOTE: Under strict aseptic precautions and local anesthesia, a 6-Czech introducer was placed in the right femoral artery. Using a standard Jared catheters. I performed coronary angiography and a pigtail catheter was used to check LV pressures. LV gram was not performed. Patient tolerated the procedure well. The sheath was taken out and Angio- Seal applied but there continued to be some oozing and therefore a FemoStop was applied. CARDIAC CATHETERIZATION FINDINGS: The left ventricular end-diastolic pressure was about 13 mmHg without any gradient across the aortic valve. CORONARY ANGIOGRAPHY FINDINGS: RIGHT CORONARY ARTERY: Dominant vessel, no significant disease, has about a 30% to 35% lesion in the middle 1/3, stented area, widely patent, distally bifurcates into PDA and PLV. No significant disease. Compared to previous study from November of 2018, no change. LEFT MAIN CORONARY ARTERY: Short, patent vessel, free of significant disease. Bifurcates into LAD and circumflex. LEFT ANTERIOR DESCENDING CORONARY ARTERY: Good caliber vessel extends along the anterior wall, widely patent in the proximal and midportion. The entire LAD has a brisk flow all the way to the apex. The diagonal branch that comes off where I performed a bifurcation intervention has what appears to be a hazy area, best visualized in the AP cranial projection. There may be some about a 50% narrowing at the origin of the diagonal branch, but there is a ASHLEY-3 flow and very good brisk flow is noted and diagonal is not a very large distribution vessel. The LAD is widely patent. Diagonal probably has about a 40% to 50% narrowing with brisk flow. No other disease is noted. Mild irregularities are noted. Proximal LAD as it comes off from the left main was also stented, that area is widely patent. LEFT POSTERIOR CIRCUMFLEX CORONARY ARTERY: Technically a nondominant vessel, gives off a single large obtuse marginal that runs laterally, has minor irregularities no significant disease. Left ventriculogram was not performed. Moderate conscious sedation time was 23 minutes. Patient was administered Versed. Oxygen saturation, hemodynamics and EKG were monitored closely. FINAL IMPRESSION: This patient has a right dominant system. Widely patent RCA at the site of previous stenting. The nondominant circumflex is free of significant disease. The LAD in the proximal and midportion is widely patent. The diagonal has about a 40% to 50% stenosis with brisk ASHLEY-3 flow and this is located at the origin of the diagonal branch where there is already a stent in position. The filling pressures are normal. No gradient across aortic valve. RECOMMENDATION: I am recommending that we will pursue medical therapy since the diagonal distribution is not very large and patient has no a elevation of enzymes. I believe we can treat this with medical therapy and I did not want to jeopardize the LAD while attempting to pursue the diagonal intervention and I explained this to the patient in detail. I expect he will be discharged tomorrow if he remains stable. MMODL / IJN: [id number] /
[2019-11-10] MEDS: amLODIPine 5 MG TAB PO SCH ×2 (12:58→20:35)
[2019-11-10] MEDS: SODIUM CHLORIDE 0.9% 1,000 ML IV SCH (12:58)
[2019-11-10 13:02] LABS: Glucose,Whole Blood 133 mg/dL (75-99)
[2019-11-10 16:34] LABS: Glucose,Whole Blood 108 mg/dL (75-99)
[2019-11-10 20:26] LABS: Glucose,Whole Blood 133 mg/dL (75-99)
--- NOTE | 2019-11-10 20:32 | P.PN ---
Progress Note - Text Progress Note Date: 11/10/19 Chief Complaint: Chest pain Interval history: This is a pleasant 64-year-old patient of Dr. Jason Guzmán. Chronic stable medical conditions include diabetes, hypertension, hyperlipidemia, GERD, osteoarthritis,(s) sleep apnea uses CPAP machine. For about 2 months patient's been having episodes of chest pressure comes on with activity. Better with resting. Pain is a pressure across the chest shoulder going to the back. If he takes nitroglycerin to help some. Sometimes associated with shortness of breath or lightheadedness. It has progressively getting worse. Admitted with a diagnosis of unstable angina. Today-cardiac catheterization showed some coronary artery disease. Noncritical obstruction. To be managed medically. Patient laying in bed. No chest pain. Review of systems: Was done for constitutional, cardiovascular, GI, pulmonary. relevant finding as above Active Medications Albuterol Sulfate (Ventolin Nebulized) 2.5 mg INHALATION RT-Q6H PRN PRN Reason: Shortness Of Breath Last Admin: 11/09/19 07:34 Dose: 2.5 mg Documented by: Amlodipine Besylate (Norvasc) 5 mg PO BID [facility] Last Admin: 11/10/19 12:58 Dose: 5 mg Documented by: Aspirin (Aspirin) 81 mg PO DAILY [facility] Last Admin: 11/10/19 06:25 Dose: 81 mg Documented by: Atenolol (Tenormin) 50 mg PO BID [facility] Last Admin: 11/10/19 06:17 Dose: 50 mg Documented by: Atorvastatin Calcium (Lipitor) 80 mg PO HS [facility] Last Admin: 11/09/19 20:33 Dose: 80 mg Documented by: Clopidogrel Bisulfate (Plavix) 75 mg PO DAILY [facility] Last Admin: 11/10/19 08:21 Dose: 75 mg Documented by: Enoxaparin Sodium (Lovenox) 40 mg SQ DAILY [facility] Last Admin: 11/10/19 08:18 Dose: Not Given Documented by: Famotidine (Pepcid) 20 mg PO BID [facility] Last Admin: 11/10/19 06:18 Dose: 20 mg Documented by: Ferrous Sulfate (Feosol) 325 mg PO DAILY [facility] Last Admin: 11/10/19 06:27 Dose: 325 mg Documented by: Hydrochlorothiazide (Hydrodiuril) 25 mg PO DAILY [facility] Sodium Chloride (Saline 0.9%) 1,000 mls @ 75 mls/hr IV .[id number] [facility] Stop: 11/11/19 06:30 Last Admin: 11/10/19 12:58 Dose: 75 mls/hr Documented by: Isosorbide Mononitrate (Imdur) 30 mg PO QAM [facility] Last Admin: 11/10/19 06:16 Dose: 30 mg Documented by: Lisinopril (Zestril) 20 mg PO BID [facility] Miscellaneous Information (Rx Info: Iv Contrast Was Given) 1 each MISCELLANE DAILY PRN PRN Reason: Per Protocol Stop: 11/12/19 12:20 Multivitamins (Theragran) 1 each PO DAILY [facility] Last Admin: 11/10/19 06:27 Dose: 1 each Documented by: Empagliflozin [ (Jardiance] 25 Mg) 25 mg PO DAILY [facility] Last Admin: 11/10/19 09:15 Dose: Not Given Documented by: Pantoprazole Sodium (Protonix) 40 mg PO QA@0730 [facility] Last Admin: 11/10/19 06:24 Dose: 40 mg Documented by: Psyllium Hydrophilic Mucilloid (Metamucil) 0 gm PO DAILY PRN PRN Reason: Constipation Physical examination: VITAL SIGNS: 98.2, 58, 18, 143/69, 95% room air GENERAL: Laying in bed, comfortable. EYES: Pupils equal. Conjunctiva normal. HEENT: External appearance of nose and ears normal, oral cavity grossly normal. NECK: JVD not raised; masses not palpable. HEART: First and second heart sounds are normal; no edema. LUNGS: Respiratory rate normal; decreased breath sound. ABDOMEN: Soft, nontender, liver spleen not palpable, no masses palpable. PSYCH: Alert and oriented x3; mood and affect normal. MUSCULOSKELETAL: Evidence of OA especially in the hands INVESTIGATIONS, reviewed in the clinical context: Accu-Cheks noted Previous testing White count 8.9 hemoglobin 16.2 platelets 174 potassium 4.2 creatinine 0.85 Troponin I less than 0.012, 0.0-1, 0.016 EKG tracing personally reviewed by me-normal sinus rhythm left bundle-branch block pattern Chest x-ray film personally reviewed by me-prominent vascular failed. Prominent pulmonary artery Assessment: -Unstable angina -Obstructive coronary artery disease per cardiac catheterization -Diabetes mellitus type 2 on oral hypoglycemic to non-hyperlipidemia -Essential hypertension -GERD -Primary osteoarthritis multiple joints bilaterally -Obstructive sleep apnea uses CPAP machine -Morbid obesity BMI 40.7 - Plan: Pernicious is to be managed medically. Currently on amlodipine, Tenormin, Lipitor, Imdur, Zestril. Encouraged to ambulate later today. If continues to be asymptomatic, then home tomorrow
[2019-11-10] MEDS: LISINOPRIL 20 MG TAB PO SCH (20:35)
[2019-11-10] MEDS: ATORVASTATIN 40 MG TAB PO SCH (20:35)
[2019-11-11] MEDS: SODIUM CHLORIDE 0.9% 1,000 ML IV SCH (04:29)
[2019-11-11 06:45] LABS: Glucose,Whole Blood 118 mg/dL (75-99)
[2019-11-11] MEDS: Empagliflozin [Jardiance] 25 MG PO SCH (07:50)
[2019-11-11] MEDS: amLODIPine 5 MG TAB PO SCH (07:57)
[2019-11-11] MEDS: ASPIRIN 81 MG PO SCH (07:57)
[2019-11-11] MEDS: CLOPIDOGREL 75 MG TAB PO SCH (07:57)
[2019-11-11] MEDS: MULTIVITAMINS, THERA 1 EACH TAB PO SCH (07:57)
[2019-11-11] MEDS: FERROUS SULFATE 325 MG TAB PO SCH (07:57)
[2019-11-11] MEDS: ISOSORBIDE MONONITRATE ER 30 MG TAB.ER.24H PO SCH (07:57)
[2019-11-11] MEDS: LISINOPRIL 20 MG TAB PO SCH (07:57)
[2019-11-11] MEDS: PANTOPRAZOLE 40 MG TABLET PO SCH (07:57)
[2019-11-11] MEDS: ENOXAPARIN 40 MG/0.4 ML SYRINGE SQ SCH (07:58)
[2019-11-11] MEDS: FAMOTIDINE 20 MG TAB PO SCH (07:58)
[2019-11-11] MEDS: ATENOLOL 50 MG TAB PO SCH (07:58)
[2019-11-11 07:59] VITALS: RESP 18
[2019-11-11] MEDS ORDERED: HYDROCHLOROTHIAZIDE 25 MG TAB PO SCH (09:00)
--- NOTE | 2019-11-11 10:34 | P.PN ---
Subjective This is a pleasant 64-year-old male past medical history significant for multivessel coronary artery disease status post stenting of the RCA and LAD, hypertension and dyslipidemia. He underwent cardiac catheterization with Dr. Andersen yesterday via the right femoral artery revealing RCA with a 30-35% lesion in the middle third stented area is widely patent, left main free of significant disease, LAD reveals a 50% narrowing at the origin of the diagonal branch, the LAD is widely patent, diagonal has a 40-50% narrowing. Recommendation was made for maximizing his medical therapy. Blood pressure 135/83 heart rate 58 afebrile maintaining oxygen saturation on room air. Currently maintained on amlodipine 5 mg twice a day, aspirin 81 mg daily, atenolol 50 mg twice a day, atorvastatin 80 mg daily, Plavix 75 mg daily, hydrochlorothiazide 25 mg daily, Imdur 30 mg daily and lisinopril 20 mg twice a day. GENERAL: Well-appearing, well-nourished and in no acute distress. NECK: Supple without JVD or thyromegaly. LUNGS: Breath sounds clear to auscultation bilaterally. Respiration equal and unlabored. No wheezes, rales or rhonchi. HEART: Regular rate and rhythm without murmurs, rubs or gallops. S1 and S2 heard. EXTREMITIES: Normal range of motion, no edema. No clubbing or cyanosis. Peripheral pulses intact. ASSESSMENT Chest pain, an acute event has been ruled out. Coronary artery disease s/p PCI Hypertension Dyslipidemia PLAN Stable for discharge on current regimen. Follow up in the office with Dr. Andersen upon discharge. Nurse Practitioner note has been reviewed, I agree with a documented findings and plan of care. Patient was seen and examined. Objective - Vital Signs Vital signs: Vital Signs Temp 98.0 F 11/11/19 07:58 Pulse 58 L 11/11/19 08:00 Resp 18 11/11/19 08:00 BP 135/83 11/11/19 07:58 Pulse Ox 96 11/11/19 07:58 Intake & Output 11/10/19 11/11/19 11/11/19 18:59 06:59 18:59 Intake Total 490 240 Output Total 200 Balance 290 240 Intake: IV 50 Oral 240 240 Other 200 Output: Urine 200 Other: Voiding Method Toilet Toilet Toilet # Voids 1 - Labs CBC & Chem 7: 11/08/19 23:56 11/08/19 23:56 Labs: Abnormal Lab Results - Last 24 Hours (Table) 11/10/19 11/10/19 11/10/19 Range/Units 12:57 16:31 20:25 POC Glucose (mg/dL) 133 H 108 H 133 H (75-99) mg/dL 11/11/19 Range/Units 06:43 POC Glucose (mg/dL) 118 H (75-99) mg/dL
[2019-11-11 11:33] VITALS: BP 124/77; PULSE 55; TEMP 97.7
[2019-11-11 11:44] LABS: Glucose,Whole Blood 114 mg/dL (75-99)
--- NOTE | 2019-11-13 23:13 | P.DS ---
Providers Date of admission: 11/09/19 00:58 Expected date of discharge: 11/11/19 Attending physician: Ad Vidal Consults: 11/09/19 00:58 Consult Physician Routine Consulting Provider: Wan Andersen Consult Reason/Comments: chest pain. Do you want consulting provider notified?: Yes Primary care physician: Jason Guzmán [facility] Course: Chief Complaint: Chest pain Hospital course: This is a pleasant 64-year-old patient of Dr. Jason Guzmán. Chronic stable medical conditions include diabetes, hypertension, hyperlipidemia, GERD, osteoarthritis,(s) sleep apnea uses CPAP machine. Known coronary artery disease. For about 2 months patient's been having episodes of chest pressure comes on with activity. Better with resting. Pain is a pressure across the chest shoulder going to the back. If he takes nitroglycerin to help some. Sometimes associated with shortness of breath or lightheadedness. It has progressively getting worse. Admitted with a diagnosis of unstable angina. cardiac catheterization showed some coronary artery disease. Noncritical obstruction. To be managed medically. Patient laying in bed. No chest pain. Today-doing well. Heart regular rate. No further cardiac symptoms. Discussed with the patient. Consultations: Dr. VC Maher from cardiology Dr. MATTHEW Andersen from interventional cardiology Physical examination: VITAL SIGNS: 97.7, 67, 18, 124/77, 96% room air GENERAL: Laying in bed, comfortable. EYES: Pupils equal. Conjunctiva normal. HEENT: External appearance of nose and ears normal, oral cavity grossly normal. NECK: JVD not raised; masses not palpable. HEART: First and second heart sounds are normal; no edema. LUNGS: Respiratory rate normal; decreased breath sound. ABDOMEN: Soft, nontender, liver spleen not palpable, no masses palpable. PSYCH: Alert and oriented x3; mood and affect normal. MUSCULOSKELETAL: Evidence of OA especially in the hands INVESTIGATIONS, reviewed in the clinical context: Accu-Cheks noted Previous testing White count 8.9 hemoglobin 16.2 platelets 174 potassium 4.2 creatinine 0.85 Troponin I less than 0.012, 0.0-1, 0.016 EKG tracing personally reviewed by me-normal sinus rhythm left bundle-branch block pattern Chest x-ray film personally reviewed by me-prominent vascular failed. Prominent pulmonary artery Cardiac kikorektqenfiic-33-10% stenosis at the origin of the diagonal branch were already there is a stent present. Assessment: -Unstable angina -coronary artery disease per cardiac catheterization -Diabetes mellitus type 2 on oral hypoglycemic to non-hyperlipidemia -Essential hypertension -GERD -Primary osteoarthritis multiple joints bilaterally -Obstructive sleep apnea uses CPAP machine -Morbid obesity BMI 40.7 - Disposition: Home Patient Condition at Discharge: Fair Plan - Discharge Summary Discharge Rx Participant: No New Discharge Prescriptions: New amLODIPine [Norvasc] 5 mg PO BID #60 tab Continue [place]-3 Fatty Acids/Fish Oil [Fish Oil 1,000 mg Softgel] 3 cap PO DAILY Multivitamins, Thera [Multivitamin (formulary)] 1 tab PO DAILY Albuterol Sulfate [Proair Hfa] 2 puff INHALATION RT-Q6H PRN PRN Reason: Shortness Of Breath Benazepril/Hydrochlorothiazide [Benazepril-Hctz 20-12.5 mg Tab] 2 tab PO DAILY Atenolol [Tenormin] 50 mg PO BID Aspirin 81 mg PO DAILY Clopidogrel [Plavix] 75 mg PO DAILY #30 tab Nitroglycerin Sl Tabs [Nitrostat] 0.4 mg SUBLINGUAL Q5M PRN #30 tab PRN Reason: Chest Pain Niacin 1,000 mg PO HS Psyllium Husk 100% [Metamucil Packet] 1 tsp PO BID Empagliflozin [Jardiance] 25 mg PO DAILY Ferrous Sulfate [Iron] 325 mg PO DAILY Isosorbide Mononitrate ER [Imdur] 30 mg PO QAM Omeprazole 20 mg PO BID Atorvastatin [Lipitor] 80 mg PO DAILY Famotidine [Pepcid] 20 mg PO BID No Action Mildred 500 mg PO DAILY Discharge Medication List Albuterol Sulfate [Proair Hfa] 2 puff INHALATION RT-Q6H PRN 07/14/17 [History] Atenolol [Tenormin] 50 mg PO BID 07/14/17 [History] Benazepril/Hydrochlorothiazide [Benazepril-Hctz 20-12.5 mg Tab] 2 tab PO DAILY 07/14/17 [History] Mildred 500 mg PO DAILY 07/14/17 [History] Multivitamins, Thera [Multivitamin (formulary)] 1 tab PO DAILY 07/14/17 [Hi story] [place]-3 Fatty Acids/Fish Oil [Fish Oil 1,000 mg Softgel] 3 cap PO DAILY 07/14/17 [History] Aspirin 81 mg PO DAILY 07/16/17 [Rx] Clopidogrel [Plavix] 75 mg PO DAILY #30 tab 07/16/17 [Rx] Nitroglycerin Sl Tabs [Nitrostat] 0.4 mg SUBLINGUAL Q5M PRN #30 tab 07/16/17 [Rx] Niacin 1,000 mg PO HS 10/05/17 [History] Psyllium Husk 100% [Metamucil Packet] 1 tsp PO BID 11/26/18 [History] Empagliflozin [Jardiance] 25 mg PO DAILY 07/14/19 [History] Ferrous Sulfate [Iron] 325 mg PO DAILY 07/14/19 [History] Isosorbide Mononitrate ER [Imdur] 30 mg PO QAM 07/14/19 [History] Omeprazole 20 mg PO BID 07/14/19 [History] Atorvastatin [Lipitor] 80 mg PO DAILY 11/09/19 [History] Famotidine [Pepcid] 20 mg PO BID 11/09/19 [History] amLODIPine [Norvasc] 5 mg PO BID #60 tab 11/11/19 [Rx] Follow up Appointment(s)/Referral(s): Wan Andersen MD [STAFF PHYSICIAN] - 11/16/19 2:45 pm Jason Guzámn MD [Primary Care Provider] - 1-2 days Discharge Disposition: HOME SELF-CARE
== END 2019-11-11 13:00 | disposition home or self-care (01) ==
LOC: EC 23:35 → 1SOBS 11-09 00:58
PROVIDERS: ADMIT Hospitalist; ATTEND Hospitalist
DX: I25.110 Atherosclerotic heart disease of native coronary artery with unstable angina pectoris (principal); E11.9 Type 2 diabetes mellitus without complications; E66.01 Morbid (severe) obesity due to excess calories; Z68.41 Body mass index [BMI] 40.0-44.9, adult; E78.5 Hyperlipidemia, unspecified; F40.240 Claustrophobia; G47.33 Obstructive sleep apnea (adult) (pediatric); I10 Essential (primary) hypertension; I25.2 Old myocardial infarction; J44.9 Chronic obstructive pulmonary disease, unspecified; K21.9 Gastro-esophageal reflux disease without esophagitis; M15.9 Polyosteoarthritis, unspecified; Z79.02 Long term (current) use of antithrombotics/antiplatelets; Z79.82 Long term (current) use of aspirin; Z79.84 Long term (current) use of oral hypoglycemic drugs; Z79.899 Other long term (current) drug therapy; Z87.440 Personal history of urinary (tract) infections; Z87.891 Personal history of nicotine dependence; Z95.5 Presence of coronary angioplasty implant and graft; Z99.89 Dependence on other enabling machines and devices; Z87.820 Personal history of traumatic brain injury
CPT/HCPCS: 96372; 99285; 36415; 94640; 93005; 93458; 80061; 80053; 83735; 84484 ×2; 85025; 85610; 85730; 71046; G0378 ×3; C8929; C1769 ×3; C1760; C1894; J2250; J2001; J1650; Q9950; Q9967; 93306

== ENCOUNTER → 2020-06-11 | Outpatient (CLI) | payer OTHER ==
--- NOTE | 2020-06-12 07:16 | CT ---
EXAMINATION TYPE: CT chest wo con DATE OF EXAM: 06/11/2020 COMPARISON: NONE HISTORY: Asbestos exposure, past. Interstitial lung disease. Pt c/o SOB, burning in chest CT DLP: 664.10 mGycm. Automated Exposure Control for Dose Reduction was Utilized. TECHNIQUE: CT scan of the thorax is performed without IV contrast. FINDINGS: LUNGS: Mild to moderate left greater than right basilar linear scarring and/or atelectasis. No susp icious consolidation. No concerning pulmonary nodules or masses. There is no pleural effusion or pneu mothorax seen bilaterally. The tracheobronchial tree is patent. MEDIASTINUM: Lack of IV contrast is noted to limit evaluation for mediastinal and especially hilar ad enopathy. There are no definitive greater than 1 cm hilar or mediastinal lymph nodes. No cardiomega ly or pericardial effusion is seen. Moderate to severe three-vessel coronary artery calcification whi ch is noted marked underlying coronary artery disease. Liver is diffusely low dense consistent with fatty infiltration. Debris-filled stomach suggests recen t meal ingestion. Tiny splenule in the inferior splenic hilum. Moderate to severe multilevel spurring in the visualized spine. Bilateral subareolar gynecomastia. IMPRESSION: Mild to moderate left greater than right bibasilar linear scarring and/or atelectasis. No acute pulmonary process. No peripheral calcified pleural plaques.
== END | disposition home or self-care (01) ==
LOC: RADCTMAIN 19:22
PROVIDERS: ATTEND Physician Assistant
DX: J84.9 Interstitial pulmonary disease, unspecified (principal); Z77.090 Contact with and (suspected) exposure to asbestos
CPT/HCPCS: 71250

== ENCOUNTER → 2022-08-04 | Outpatient (CLI) | payer MEDICARE, OTHER ==
--- NOTE | 2022-08-04 08:59 | US ---
EXAMINATION TYPE: US duplex aorta DATE OF EXAM: 08/04/2022 COMPARISON: Chest CT CLINICAL HISTORY: Z13.6 screening AAA. TECHNIQUE: Multiple sonographic images of the abdominal aorta are obtained. FINDINGS: EXAM MEASUREMENTS: Abdominal Aorta: Proximal: Unable to visualize Mid: 1.9 x 1.9 cm Distal: 1.7 x 1.6 cm Bifurcation: Unable to visualize Unable to visualize [facility] [employer] NOTES: Large pt body habitus and overlying bowel gas making scanning very difficult IMPRESSION: Limited examination due to patient body habitus and overlying bowel gas with nonvisualization of the proximal aorta and aortic bifurcation. No abdominal aortic aneurysm involving the visualized portions .
== END | disposition home or self-care (01) ==
LOC: RADUSWWP 08:27
PROVIDERS: ATTEND Family Medicine
DX: Z13.6 Encounter for screening for cardiovascular disorders (principal)
CPT/HCPCS: 93979

== ENCOUNTER 2023-07-12 15:19 | Emergency (ER) | payer MEDICARE, OTHER ==
[2023-07-12 15:29] VITALS: TEMP 97.6
--- NOTE | 2023-07-12 15:59 | XR ---
EXAMINATION TYPE: XR chest 2V DATE OF EXAM: 07/12/2023 COMPARISON: 11/09/2019 HISTORY: Shortness of breath TECHNIQUE: Frontal and lateral views of the chest are obtained. FINDINGS: Scattered senescent parenchymal changes noted. Hyperinflation compatible with COPD. No evidence for infiltrate. No evidence for atelectasis. Heart size is stable. Mediastinal structures are stable and grossly unremarkable. No evidence for hilar prominence. Degenerative changes dorsal spine. IMPRESSION: 1. No evidence for acute pulmonary disease.
[2023-07-12 16:24] LABS: Basophils # (A) 0.1 k/uL (0-0.2); Basophils % (A) 1 %; Eosinophils # (A) 0.2 k/uL (0-0.7); Eosinophils % (A) 1 %; HCT 50.8 % (39.0-53.0); HGB 16.8 gm/dL (13.0-17.5); Lymphocytes # (A) 4.8 k/uL (1.0-4.8); Lymphocytes % (A) 40 %; MCHC 33.1 g/dL (31.0-37.0); MCV 87.4 fL (80.0-100.0); Mean Platelet Volume 8.1; Monocytes # (A) 0.7 k/uL (0-1.0); Monocytes % (A) 6 %; Neutrophils % (A) 50 %; Platelet Count 164 k/uL (150-450); RBC 5.81 m/uL (4.30-5.90); RDW 14.8 % (11.5-15.5)
[2023-07-12 16:43] LABS: ALT 24 U/L (4-49); AST 27 U/L (17-59); African American GFR (CKD) >90 (>60 ml/min/1.73 sqM); Albumin 4.6 g/dL (3.5-5.0); Alkaline Phosphatase 91 U/L (38-126); Anion Gap 9 mmol/L; Blood Urea Nitrogen 12 mg/dL (9-20); Carbon Dioxide 28 mmol/L (22-30); Chloride 101 mmol/L (98-107); Glucose 93 mg/dL (74-99); INR 0.9 (<1.2); Non-African American GFR(CKD) >90 (>60 ml/min/1.73 sqM); Potassium 3.6 mmol/L (3.5-5.1); Prothrombin Time 9.8 sec (9.0-12.0); Sodium 138 mmol/L (137-145); Total Bilirubin 1.1 mg/dL (0.2-1.3); Total Protein 7.7 g/dL (6.3-8.2)
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
--- NOTE | 2023-07-12 17:55 | CT ---
EXAMINATION TYPE: CT brain wo con DATE OF EXAM: 07/12/2023 COMPARISON: none HISTORY: Headache, vertigo. CT DLP: 1171.[address] of the brain was performed. The ventricles, basal cisterns and sulci overlying the cerebral convexities demonstrate mild enlargem ent. There is no evidence for intracranial hemorrhage or sulcal effacement. There is decreased attenuation about the periventricular white matter and deep white matter of both c erebral hemispheres, compatible with chronic small vessel ischemia. Differential diagnosis does inclu de demyelination. No mass effects are seen.No midline shift. Osseous calvarium is intact. If symptoms persist consider MRI. IMPRESSION: 1. Age related atrophic and chronic small vessel ischemic change without acute intracranial process s een at this time.
[2023-07-12] MEDS ORDERED: MECLIZINE 12.5 MG TAB PO STA (17:57)
[2023-07-12 18:57] VITALS: BP 141/79; PULSE 57; RESP 16
== END 2023-07-12 19:12 | disposition home or self-care (01) ==
LOC: EC 15:19
DX: R42 Dizziness and giddiness (principal); I67.82 Cerebral ischemia; I25.10 Atherosclerotic heart disease of native coronary artery without angina pectoris; J44.9 Chronic obstructive pulmonary disease, unspecified; E11.9 Type 2 diabetes mellitus without complications; K21.9 Gastro-esophageal reflux disease without esophagitis; I10 Essential (primary) hypertension; I25.2 Old myocardial infarction; M19.90 Unspecified osteoarthritis, unspecified site; G47.30 Sleep apnea, unspecified; E78.5 Hyperlipidemia, unspecified; Z79.84 Long term (current) use of oral hypoglycemic drugs; Z79.1 Long term (current) use of non-steroidal anti-inflammatories (NSAID); Z79.899 Other long term (current) drug therapy
CPT/HCPCS: 36415; 70450; 71046; 80053; 84484; 85025; 85610; 93005; 99284

== ENCOUNTER → 2023-07-16 | Outpatient (CLI) | payer MEDICARE, OTHER ==
[2023-07-16 21:09] LABS: Chol/HDL Ratio 3.54 Ratio; LDL Cholesterol,Calculated 61.5 mg/dL (0.0-131.0); Prostate Specific Antigen 0.29 ng/mL (0.000-4.500)
== END | disposition home or self-care (01) ==
LOC: LABWHC1 12:12
PROVIDERS: ATTEND Family Medicine
DX: Z12.5 Encounter for screening for malignant neoplasm of prostate (principal); E78.5 Hyperlipidemia, unspecified
CPT/HCPCS: 36415; 80061; 84153

== ENCOUNTER → 2023-10-16 | Outpatient (CLI) | payer MEDICARE ==
--- NOTE | 2023-10-16 14:55 | US ---
EXAMINATION TYPE: US carotid duplex BILAT DATE OF EXAM: 10/16/2023 COMPARISON: NONE CLINICAL INDICATION: Male, 68 years old with history of I65.29 OCCLUSION AND STENOSIS OF UNSPECIFIED CAROT; Dizzy spells; HTN; DM; Bilateral arm weakness TECHNIQUE: Carotid duplex ultrasound examination. Indirect Doppler criteria was utilized. FINDINGS: EXAM MEASUREMENTS: RIGHT: Peak Systolic Velocity (PSV) cm/sec ----- Right CCA: 80 ----- Right ICA: 91 ----- Right ECA: 127 ICA/CCA ratio: 1.1 RIGHT: End Diastole cm/sec ----- Right CCA: 16 ----- Right ICA: 20 ----- Right ECA: 14 LEFT: Peak Systolic Velocity (PSV) cm/sec ----- Left CCA: 95 ----- Left ICA: 91 ----- Left ECA: 107 ICA/CCA ratio: 1.0 LEFT: End Diastole cm/sec ----- Left CCA: 19 ----- Left ICA: 22 ----- Left ECA: 18 VERTEBRALS (direction of flow): Right Vertebral: Antegrade Left Vertebral: Antegrade Rhythm: Normal FACILITY MECHANIC NOTES: Plaque bilateral distal CCA and ICA bulb. Elevated right ECA Velocities. Reading Intervention Teacher notes: Incidental: Right thyroid nodule = 5.2 x 3.3 x 3.0 cm IMPRESSION: 1. Incidental large 5.2 cm right thyroid lobe nodule for which dedicated thyroid ultrasound evaluatio n is recommended. FNA may be indicated. 2. No hemodynamically significant internal carotid artery stenosis on either side. Criteria for Assigning % of Stenosis / Diameter reduction (Estimation based on the indirect measurements of the internal carotid artery velocities (ICA PSV). 1. Normal (no stenosis)=ICA PSV < 125 cm/s: ratio < 2.0: ICA EDV<40 cm/s. 2. Less than 50% stenosis=ICA PSV < 125 cm/s: ratio < 2.0: ICA EDV<40 cm/s. 3. 50 to 69% stenosis=ICA PSV of 125 to 230 cm/s: ration 2.0 ? 4.0: ICA EDV 40-100 cm/s. 4. Greater than 70% stenosis to near occlusion= ICA PSV > 230 cm/s: ratio > 4.0: ICA EDV > 100 cm/s. 5. Near occlusion= ICA PSV velocities may be low or undetectable: variable ratio and ICA EDV. 6. Total occlusion=unable to detect flow.
== END | disposition home or self-care (01) ==
LOC: RADUSWWP 10:53
PROVIDERS: ATTEND Family Medicine
DX: I65.23 Occlusion and stenosis of bilateral carotid arteries (principal); I10 Essential (primary) hypertension
CPT/HCPCS: 93880

== ENCOUNTER → 2023-12-02 | Outpatient (CLI) | payer MEDICARE ==
--- NOTE | 2023-12-02 16:17 | US ---
EXAMINATION TYPE: US thyroid st tissue head/neck DATE OF EXAM: 12/02/2023 COMPARISON: NONE CLINICAL INDICATION: Male, 68 years old with history of E04.1 NONTOXIC SINGLE THYROID NODULE; thyroid nodule GLAND SIZE: Right Lobe: 4.7 x 3.1 x 4.5 cm Overall Parenchyma: heterogenous Left Lobe: 4.6 x 2.0 x 1.2 cm Overall Parenchyma: homogeneous Isthmus Thickness: .4 cm NODULES RIGHT: # of nodules measured on right: 1 1. 4.4 X 2.5 x 3.1 cm, mid , Prior size: no previous TIRADS Score: 4 TIRADS Category 4: Composition: Solid or almost completely solid (2 points). Echogenicity: Hypoechoic (2 points). Shape: Wider than tall (0 points). Margin: Smooth (0 points). Recommendation: If >1.5cm: FNA; If >1cm: Follow up at 1,2, 3,5 years LEFT: # of nodules measured on left: 0 ISTHMUS: # of nodules measured in the isthmus: 0 Bilateral neck scanned, no evidence of lymphadenopathy. IMPRESSION: Right thyroid nodule that meets criteria for FNA if not already performed.
== END | disposition home or self-care (01) ==
LOC: RADUSWWP 15:37
PROVIDERS: ATTEND Family Medicine
DX: E04.1 Nontoxic single thyroid nodule (principal)
CPT/HCPCS: 76536

== ENCOUNTER 2024-10-03 14:12 | Emergency (ER) | payer OTHER, MEDICARE ==
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
[2024-10-03 15:54] VITALS: TEMP 98
[2024-10-03 16:01] LABS: Basophils # (A) 0.1 k/uL (0-0.2); Basophils % (A) 1 %; Eosinophils # (A) 0.2 k/uL (0-0.7); Eosinophils % (A) 2 %; HCT 51.3 % (39.0-53.0); HGB 16.7 gm/dL (13.0-17.5); Lymphocytes # (A) 4.1 k/uL (1.0-4.8); Lymphocytes % (A) 42 %; MCH 29.2 pg (25.0-35.0); MCHC 32.6 g/dL (31.0-37.0); MCV 89.3 fL (80.0-100.0); Mean Platelet Volume 7.9; Monocytes # (A) 0.5 k/uL (0-1.0); Monocytes % (A) 5 %; Neutrophils # (A) 4.7 k/uL (1.3-7.7); Neutrophils % (A) 48 %; Platelet Count 145 k/uL (150-450); RBC 5.74 m/uL (4.30-5.90); RDW 14.8 % (11.5-15.5); WBC 9.8 k/uL (3.8-10.6)
--- NOTE | 2024-10-03 16:18 | XR ---
2 view chest HISTORY: Chest pain COMPARISON: 07/12/2023 TECHNIQUE: PA and lateral views chest obtained. FINDINGS: The lungs are clear of consolidative opacity. There is stable minimal interstitial opacity in the chuyita g bases likely indicating mild chronic interstitial change or atelectasis. There is mild pleural thic kening in the right lateral lower lung zone also likely chronic in nature. There is no definite pleural effusion or pneumothorax. The heart and pulmonary vasculature are normal The osseous structures and soft tissues of the thorax are intact. IMPRESSION: 1. No acute cardiopulmonary disease. 2. Mild stable chronic changes in the lung bases as described above. [facility], , 10/03/2024 4:15 PM
[2024-10-03 16:22] LABS: ALT 41 U/L (4-49); African American GFR (CKD) >90 (>60 ml/min/1.73 sqM); Anion Gap 6 mmol/L; Blood Urea Nitrogen 19 mg/dL (9-20); Calcium 9.5 mg/dL (8.4-10.2); Carbon Dioxide 25 mmol/L (22-30); Chloride 105 mmol/L (98-107); Glucose 148 mg/dL (74-99); Non-African American GFR(CKD) 84 (>60 ml/min/1.73 sqM); Sodium 136 mmol/L (137-145); Total Bilirubin 1.7 mg/dL (0.2-1.3)
[2024-10-03 16:24] LABS: AST 67 U/L (17-59); Alkaline Phosphatase 79 U/L (38-126); Magnesium 1.8 mg/dL (1.6-2.3); Potassium 5.2 mmol/L (3.5-5.1)
[2024-10-03 17:02] LABS: Partial Thromboplastin Time 23.8 sec (22.0-30.0); Prothrombin Time 10.6 sec (10.0-12.5)
[2024-10-03 18:12] VITALS: BP 126/58; PULSE 67; RESP 20
== END 2024-10-03 17:40 | disposition home or self-care (01) ==
LOC: EC 14:12
DX: R07.89 Other chest pain (principal); I10 Essential (primary) hypertension; I25.10 Atherosclerotic heart disease of native coronary artery without angina pectoris; V89.2XXA Person injured in unspecified motor-vehicle accident, traffic, initial encounter
CPT/HCPCS: 36415; 71046; 80053; 83735; 84484; 85025; 85610; 85730; 93005; 99285

== ENCOUNTER 2025-05-16 08:46 | Day surgery (SDC) | payer MEDICARE ==
[~2025-05-16 08:46] MED LIST changes: +LACTATED RINGERS 1,000 ML IV SCH; +LIDOCAINE 1% (10MG/ML) FOR IV START INTRADERMA PRN; -LIDOCAINE 1% 20 ML VIAL (10MG/ML) FOR IV START INTRADERMA PRN
[2025-05-16] MEDS: IV FLUID CONTINUATION 1,000 ML IV ONE (09:00)
[2025-05-16 09:31] VITALS: TEMP 97.5
[2025-05-16 09:41] LABS: Glucose,Whole Blood 121 mg/dL (70-110)
[2025-05-16] MEDS ORDERED: PROPOFOL 10 MG/ML 20 ML VIAL IV ONE (10:10)
--- NOTE | 2025-05-16 10:23 | P.PCN ---
Date of Procedure: 05/16/25 Procedure(s) Performed: BRIEF HISTORY: Patient is a 69-year-old pleasant white male scheduled for an elective colonoscopy as a part of screening for colon cancer/positive Cologuard. PROCEDURE PERFORMED: Colonoscopy with biopsy. PREOPERATIVE DIAGNOSIS: Screening for colon cancer/positive Cologuard. IV sedation per Anesthesia. PROCEDURE: After informed consent was obtained, the patient, was brought into the endoscopy unit. IV sedation was administered by Anesthesia under continuous monitoring. Digital rectal examination was normal. Initially the Olympus CF-160 flexible video colonoscope was then inserted in the rectum, gradually advanced into the cecum without any difficulty. Careful examination was performed as the scope was gradually being withdrawn. Ileocecal valve and the appendiceal orifice were visualized and appeared normal. Prep was excellent. Mucosa of the cecum, normal. Descending colon there is a 3 mm polyp that was removed by cold biopsy. Rest of the ascending colon, transverse colon, appeared normal. The descending colon there was a 4 mm polyp that was removed by cold biopsy. Scattered sigmoid diverticulosis. Rest of the descending colon, sigmoid colon, and rectum appeared normal. Retroflexion was performed in the rectum and no lesions were seen. The patient tolerated the procedure well. IMPRESSION: 3 mm ascending colon polyp status post cold biopsy 4 mm descending colon polyp status post cold biopsy Scattered sigmoid diverticulosis RECOMMENDATIONS: Findings of this examination were discussed with the patient as well as his family.. He was advised to follow-up with the biopsy results. If the biopsy reveals adenoma he can have repeat colonoscopy in 5 years.
[2025-05-16 10:46] VITALS: BP 113/65; PULSE 65; RESP 16
== END 2025-05-16 11:01 | disposition home or self-care (01) ==
LOC: ORWHC2ENDO 08:46
PROVIDERS: ATTEND Internal Medicine Gastroenterology
DX: D12.2 Benign neoplasm of ascending colon (principal); D12.4 Benign neoplasm of descending colon; K57.30 Diverticulosis of large intestine without perforation or abscess without bleeding; I10 Essential (primary) hypertension; E78.5 Hyperlipidemia, unspecified; I25.10 Atherosclerotic heart disease of native coronary artery without angina pectoris; G47.33 Obstructive sleep apnea (adult) (pediatric); J44.9 Chronic obstructive pulmonary disease, unspecified; E11.9 Type 2 diabetes mellitus without complications; K21.9 Gastro-esophageal reflux disease without esophagitis; F40.240 Claustrophobia; F41.9 Anxiety disorder, unspecified; Z99.89 Dependence on other enabling machines and devices; Z79.85 Long-term (current) use of injectable non-insulin antidiabetic drugs; Z85.828 Personal history of other malignant neoplasm of skin; Z79.82 Long term (current) use of aspirin; Z79.899 Other long term (current) drug therapy; Z79.02 Long term (current) use of antithrombotics/antiplatelets; Z79.51 Long term (current) use of inhaled steroids
CPT/HCPCS: 88305; 45380; J2704